=== PATIENT | male | born 1960 | race Caucasian/White ===

== ENCOUNTER 2021-10-16 05:35 | Inpatient (IN) | payer MEDICARE, OTHER, SELFPAY ==
[2021-10-16] VITALS (10 sets, daily range): BP systolic 119–173; BP diastolic 57–81; PULSE 63–92; RESP 16–25; TEMP 36.6–37.8; O2SAT 94–100; BMI 16.1
--- NOTE | ~2021-10-16 | XR_ITS ---
EXAMINATION: XR CHEST CLINICAL INFORMATION: Acute onset hypoxia. COMPARISON: Chest x-ray 10/19/2021 TECHNIQUE: Frontal portable view of the chest was obtained. 12:24 AM FINDINGS: Tubes and lines: Right IJ catheter tip at caval atrial junction superior vena cava unchanged position since prior study. Previously seen gastric tube and endotracheal tube have been removed. Patchy retrocardiac airspace opacity is persistent. The right lung now appears normally aerated. No pleural effusion. No pneumothorax. XR/XR chest 1V IMPRESSION: Persistent patchy left basilar airspace opacity. Right lung now normally aerated.
--- NOTE | ~2021-10-16 | CT_ITS ---
EXAMINATION: CT HEAD WITHOUT CONTRAST CLINICAL INFORMATION: Fall. Pain. COMPARISON: None TECHNIQUE: Contiguous axial imaging was performed from the skull base to vertex without intravenous administration of contrast. Examination was repeated due to patient motion. This CT examination was performed using dose optimization techniques as appropriate, variously including the following: *Automated exposure control *Adjustment of mA and/or kV according to patient size (this includes techniques or standardized protocols for targeted exams where dose is matched to indication/reason for exam; i.e. extremities or head) *Use of iterative reconstruction technique DLP: 1526 mGy-cm FINDINGS: There is no evidence of acute intracranial hemorrhage or territorial infarction. No abnormal mass effect or midline shift is seen. Coleman to white matter differentiation is well preserved. No extra-axial fluid collections are identified. The ventricles are normal in size. Scattered periventricular white matter changes are seen of uncertain chronicity. The osseous structures and soft tissues are normal. The mastoid air cells are well aerated. There is complete opacification of the left maxillary sinus just an underlying mucocele. Scattered opacification of the left ethmoid air cells. CT/CT head/brain wo con IMPRESSION: Chronic appearing and age-related changes. I do not appreciate any acute intracranial hemorrhage. No acute bony abnormality.
--- NOTE | ~2021-10-16 | XR_ITS ---
EXAMINATION: XR CHEST CLINICAL INFORMATION: Hypoxia COMPARISON: 10/16/2021 TECHNIQUE: Frontal view of the chest was obtained. XR/XR chest 1V FINDINGS/IMPRESSION: Endotracheal tube terminates 5.4 cm above the aquiles. Enteric tube courses through the stomach. Left basilar subsegmental atelectasis. No focal consolidation. Normal heart size and pulmonary vascularity. Aorta is atherosclerotic.
--- NOTE | ~2021-10-16 | XR_ITS ---
EXAMINATION: XR CHEST CLINICAL INFORMATION: Oral gastric tube placement COMPARISON: Chest x-ray 10/20/2021 TECHNIQUE: Frontal portable view of the chest was obtained. 6:10 PM FINDINGS: Tubes and lines: 1. Endotracheal tube catheter is 5 cm above the aquiles. 2. Right IJ catheter tip at the caval atrial junction in superior vena cava. No pneumothorax. 3. Oral gastric tube catheter passes down into the stomach. Tip below lower margin of film. Heart size is normal. Cardiac mediastinal contours are normal. Mild central pulmonary vascular prominence increased since prior study 10/20/2021. Hazy airspace opacities in perihilar mid lower lung could be related to the increased pulmonary vascularity, early pulmonary edema. No dense consolidation. No large pleural effusion. XR/XR chest 1V IMPRESSION: 1. Endotracheal tube catheter is 5 cm above the aquiles. 2. Right IJ catheter tip at the caval atrial junction in superior vena cava. No pneumothorax. 3. Oral gastric tube catheter passes down into the stomach. Tip below lower margin of film. 4. Increased central pulmonary vascular prominence with developing hazy airspace opacities in perihilar mid and lower lung, possible early pulmonary edema.
--- NOTE | ~2021-10-16 | CT_ITS ---
EXAMINATION: CT CERVICAL SPINE WITHOUT CONTRAST CLINICAL INFORMATION: Fall. COMPARISON: None TECHNIQUE: Axial 3 mm thin and reformatted 2 mm thin sagittal and coronal images of cervical spine were obtained without contrast This CT examination was performed using dose optimization techniques as appropriate, variously including the following: *Automated exposure control *Adjustment of mA and/or kV according to patient size (this includes techniques or standardized protocols for targeted exams where dose is matched to indication/reason for exam; i.e. extremities or head) *Use of iterative reconstruction technique DLP: 1800 mGy-cm FINDINGS: There is normal cervical lordosis. The vertebral heights, alignment and disc heights are normal. The craniovertebral junction and the C1-C2 alignment is normal. There is no visible acute fracture, dislocation or subluxation. There is no evidence of disc bulge, herniation or spinal canal stenosis. The neural foramina are patent bilaterally. The prevertebral and paravertebral soft tissues are normal. The lung apices are clear CT/CT cervical spine wo con IMPRESSION: No visible acute fracture, dislocation or subluxation seen. Fleischner guidelines were followed.
--- NOTE | ~2021-10-16 | XR_ITS ---
EXAMINATION: XR CHEST CLINICAL INFORMATION: Central line placement COMPARISON: 10/17/2021 TECHNIQUE: Frontal view of the chest was obtained. FINDINGS: Endotracheal tube is 2.7 cm above the aquiles. The right IJ central venous catheter tip is at the cavoatrial junction. NG tube is below the diaphragm. The cardiomediastinal silhouette is stable. The lungs are well expanded. No pneumothorax. Mild left basilar atelectasis and trace effusion. XR/XR chest 1V IMPRESSION: ET tube 2.7 cm above the aquiles. Right IJ central venous catheter tip at the cavoatrial junction. No pneumothorax. Mild left basilar atelectasis and trace effusion.
--- NOTE | ~2021-10-16 | XR_ITS ---
EXAMINATION: XR CHEST CLINICAL INFORMATION: Follow up Covid COMPARISON: Chest x-rays of 10/17/2021 and multiple previous chest x-rays dated back to 07/31/2018, chest CT of 08/02/2018 TECHNIQUE: Frontal view of the chest was obtained. FINDINGS: An endotracheal tube terminates 4.1 cm above the aquiles. Right internal jugular approach catheter tip projects over the lower SVC. An enteric tube courses below the diaphragm, the tip is external to the [id number]. The cardiomediastinal silhouette is stable and normal. The lungs are normally and symmetrically expanded. Bilateral hazy patchy airspace opacities noted on the x-rays of 10/17/2021 demonstrate interval improvement with mild persistent changes. No evidence of pleural effusions, pulmonary edema or pneumothorax. Regional skeleton is intact. XR/XR chest 1V IMPRESSION: Improving bilateral hazy patchy airspace opacities. No definite new airspace opacities. Endotracheal tube terminates 4.1 cm above the aquiles. No pneumothorax.
--- NOTE | ~2021-10-16 | XR_ITS ---
EXAMINATION: XR CHEST CLINICAL INFORMATION: Covid positive COMPARISON: None TECHNIQUE: Frontal view of the chest was obtained. FINDINGS: Expanded lungs without acute process. Heart size and pulmonary vascularity is normal. No gross bony abnormality seen. XR/XR chest 1V IMPRESSION: Unremarkable chest exam.
--- NOTE | 2021-10-16 05:53 | ECG_ITS ---
Test Reason : WEAKNESS Blood Pressure : / mmHG Vent. Rate : 071 BPM Atrial Rate : 071 BPM P-R Int : 200 ms QRS Dur : 084 ms QT Int : 396 ms P-R-T Axes : 028 030 087 degrees QTc Int : 430 ms Artifact in tracing Normal sinus rhythm Normal ECG When compared with ECG of 02-AUG-2018 23:00, slower rate Referred By: Albertina Ramos Electronically Signed By:AWA DYKES
[2021-10-16 06:32] LABS: MANUAL DIFF FLAG NO
[2021-10-16 06:44] LABS: Venous Blood Gas Refer to POC result
[2021-10-16 06:45] LABS: COVID-19 Test Positive (Negative)
[2021-10-16 06:46] LABS: VBG HCO3 25 mmol/L (22-26); VBG pCO2 45 mmHg; VBG pH 7.34 (7.32-7.43); VBG pO2 51 mmHg
[2021-10-16 06:46] LABS: INTERNATIONAL NORM RATIO 1.1 (0.9-1.1); Prothrombin Time 12.2 SEC (9.9-13.0)
[2021-10-16 06:48] LABS: Hematocrit 52.5 % (42.0-52.0); Hemoglobin 16.9 g/dl (14.0-18.0); Imm Gran Abs Auto 0.02 X10*3/uL (0.00-0.03); Imm Gran Pct Auto 0.3 % (0.0-0.4); Lymphocytes Absolute Auto 0.2 X10*3/uL (1.2-4.9); Mean Corpuscular HGB Conc 32.2 g/dl (31.0-36.0); Mean Corpuscular Hemoglobin 29.9 pg (27.0-33.0); Mean Corpuscular Volume 92.9 fL (80.0-98.0); Mean Platelet Volume 9.8 fL (9.4-12.4); Monocytes Absolute Auto 0.5 X10*3/uL (0.1-1.2); Monocytes Percent Auto 8.1 % (2-11); Neutrophils Absolute Auto 5.1 x10*3/uL (2.0-8.3); Neutrophils Percent Auto 87.6 % (45-73); Platelet Count 106 X10*3/uL (160-400); Red Blood Count 5.65 X10*6/uL (4.60-5.80); Red Cell Distribution Width 14.2 % (11.0-16.0); White Blood Count 5.8 X10*3/uL (4.8-10.8)
[2021-10-16 07:21] LABS: Ethanol < 10 mg/dL
[2021-10-16] MEDS: 0.9 % Sodium Chloride 2,000 ML 999 ML IV (07:32)
[2021-10-16 07:49] LABS: Alanine Aminotransferase 78 U/L (0-40); Albumin Level 3.9 g/dL (3.5-5.0); Alkaline Phosphatase 109 U/L (39-117); Anion Gap 15 (12-20); Bilirubin Total 0.7 mg/dL (0.0-1.0); Blood Urea Nitrogen 15 mg/dL (9-16); Calcium 9.7 mg/dL (8.4-10.2); Carbon Dioxide 22 mmol/L (22-29); Chloride 108 mmol/L (96-108); Creatinine Clr Calc Pharmacy 70.9; Estimated Glomerular Filt Rate > 60; Glucose Random 94 mg/dL (60-115); Potassium 4.1 mmol/L (3.3-5.1); Sodium 141 mmol/L (135-145); Total Protein 6.9 g/dL (6.5-8.0)
[2021-10-16 08:02] LABS: Aspartate Amino Transferase 470 U/L (5-37)
[2021-10-16 08:10] LABS: Appearance Urine HAZY; Color Urine YELLOW; Glucose Urine UA NEG (NEG); Leukocyte Esterase Urine NEG (NEG); Nitrite Urine NEG (NEG); PH 5.5 (5.0-8.0); Specific Gravity - Urine >= 1.030 (1.005-1.025); UACC Culture Trigger NO; Urine Blood 3+ (NEG); Urine Ketones NEG (NEG); Urine Protein 2+ MG/DL (NEG-TRACE)
[2021-10-16 08:23] LABS: Amorphous Sediment Urine 3+ /LPF
--- NOTE | 2021-10-16 08:23 | ED.FALL ---
HPI - Fall General Chief Complaint: Fall Stated Complaint: MULTIPLE FALLS Time Seen by Provider: 10/16/21 05:53 Source: patient and EMS Mode of arrival: EMS Limitations: no limitations History of Present Illness HPI Narrative: 61 years old male came in from home by EMS for evaluation of multiple falls at home. Patient admitted that he fell today, patient normally ambulate with cane at home, patient stated that he lost balance and fell remained on the floor coding get himself up, patient found by EMS soaked in feces and urine. Patient stated that he has no family or friends around, has a [employer] which is apparently in adequate care for the patient. Related Data Home Medications Medication Instructions Recorded Confirmed No Known Home Meds 10/16/21 10/16/21 Allergies Allergy/AdvReac Type Severity Reaction Status Date / Time ceftriaxone [From ROCEPHIN] Allergy Intermediate FACIAL Unverified 06/21/20 14:43 HIVES Review of Systems Review of Systems: All other systems are reviewed and are negative Constitutional: Reports as per HPI and Reports no additional constitutional complaints Eyes: Reports as per HPI and Reports no additional eye complaints Reports system reviewed and no additional complaints, except as documented Cardiovascular: Reports as per HPI and Reports no additional cardiovascular complaints Respiratory: Reports as per HPI and Reports no additional respiratory complaints Gastrointestinal: Reports as per HPI and Reports no additional gastrointestinal complaints Genitourinary: Reports no additional female genitourinary complaints Musculoskeletal: Reports no additional musculoskeletal complaints Skin/Breast: Reports system reviewed and no additional complaints, except as docu Psychiatric: Reports no additional psychiatric complaints Endocrine: Reports no additional endocrine complaints Hematologic/Lymphatic: Reports no additional hematologic/lymphatic complaints Allergic/Immunologic: Reports no additional allergic/immunologic complaints Reports system reviewed and no additional complaints, except as documented and Reports Abnormal speech present [facility] Past Medical History Medical History (Updated 10/16/21 @ 11:18 by Anuradha Latif MD) Hypertension Myotonic muscular dystrophy Tobacco abuse Social History Social History Advance Directives: No Physical Exam Vital Signs: Vital Signs: Last Vital Signs Temp 98.3 F 10/16/21 10:08 Pulse 90 10/16/21 10:08 Resp 20 10/16/21 10:08 BP 150/71 H 10/16/21 10:08 Pulse Ox 95 10/16/21 10:08 BMI result Body Mass Index 16.1 Vital signs have been reviewed as appeared to be correct. Blood pressure normal. Heart rate normal. Respiration rate normal. Temperature normal. Oxygen saturation normal. Appearance: Alert. Oriented X3. No acute distress. Head: Normal external exam. Normocephalic. Atraumatic. No Huynh signs noted. No raccoon eyes noted Eyes: PERRLA. EOMI. Conjunctiva and sclera normal. Eyelids normal. ENT: TM's Normal. Pharynx normal. Uvula midline. Moist mucous membranes. No trismus noted. No drooling noted. No muffled voice noted. Neck: Normal inspection. Neck supple. FROM. No adenopathy. Thyroid Normal. No meningeal signs. No neck mass noted. CVS: Normal heart rate and rhythm. Heart sound normal. No murmurs noted. Pulses normal throughout. Respiratory: No respiratory distress. Painless inspiration. Breath sounds normal. No wheezes/rales/rhonchi noted. Chest nontender. No accessory muscle usage noted or decreased air movement noted. Abdomen: Soft and nontender. Bowel sounds normal in all 4 quadrants. No distention noted. No organomegaly noted. No visible injury noted. Back: No CVA tenderness. Full range of motion noted. Skin: Skin warm and dry. Normal skin color. Normal skin turgor. No rashes/lesions/lacerations noted. Extremities: No lower extremity edema. Extremities exhibit normal range of motion. Extremities nontender. Neuro: Oriented X 3. Cranial nerve exam: II-XII are grossly intact No motor deficit. No sensory deficit. Reflexes normal. Course Course Course Narrative: Assessment and plan. 61-year-old male found on the ground soaked with feces and urine for unknown time after what he described a mechanical fall. Patient normally ambulate at home with a cane. 1. Rhabdomyolysis with no acute renal failure, hydration with normal saline. 2. COVID positive with no symptoms and stable O2 sat. 3. Elevated troponin, patient declined chest pain, nonischemic EKG, case discussed with Dr. yMers Cardiology will trend troponin in 3 hours. Reevaluation(s) Reevaluation #1: Repeat troponin is 436 inpatient Cardiology consultation, no delta change. Likely troponin elevation secondary to rhabdomyolysis. Time: 11:44 MDM - Fall Lab Data Attestation: I reviewed the patient's lab results. Result diagrams: 10/16/21 06:21 10/16/21 07:23 Labs: Lab Results 10/16/21 10/16/21 10/16/21 Range/Units 06:20 06:21 06:21 WBC 5.8 (4.8-10.8) X10*3/uL RBC 5.65 (4.60-5.80) X10*6/uL Hgb 16.9 (14.0-18.0) g/dl Hct 52.5 H (42.0-52.0) % MCV 92.9 (80.0-98.0) fL MCH 29.9 (27.0-33.0) pg MCHC 32.2 (31.0-36.0) g/dl RDW 14.2 (11.0-16.0) % Plt Count 106 L (160-400) X10*3/uL MPV 9.8 (9.4-12.4) fL Immature Gran % (Auto) 0.3 (0.0-0.4) % Neut % (Auto) 87.6 H (45-73) % Lymph % (Auto) 4.0 L (20-40) % [place] % (Auto) 8.1 (2-11) % Eos % (Auto) 0.0 (0-4) % Baso % (Auto) 0.0 (0-2) % Lymph # (Auto) 0.2 L (1.2-4.9) X10*3/uL [place] # (Auto) 0.5 (0.1-1.2) X10*3/uL Eos # (Auto) 0.0 (0.0-0.4) X10*3/uL Baso # (Auto) 0.0 (0.0-0.2) X10*3/uL Abs Immat Gran (auto) 0.02 (0.00-0.03) X10*3/uL Absolute Neuts (auto) 5.1 (2.0-8.3) x10*3/uL Absolute Nucleated RBC 0.000 (0.0-0.012) X10*3/uL Nucleated RBC % (auto) 0.0 (0.0-0.2) /100WBC PT 12.2 (9.9-13.0) SEC INR 1.1 (0.9-1.1) D-Dimer High Sensitivty 2270 NG/ML VBG pH (7.32-7.43) VBG pCO2 mmHg VBG pO2 mmHg VBG HCO3 (22-26) mmol/L VBG O2 Saturation % VBG Base Excess mmol/L Sodium (135-145) mmol/L Potassium (3.3-5.1) mmol/L Chloride (96-108) mmol/L Carbon Dioxide (22-29) mmol/L Anion Gap (12-20) BUN (9-16) mg/dL Creatinine (0.5-1.4) mg/dL Estim Creat Clear Calc Estimated GFR Random Glucose (60-115) mg/dL Calcium (8.4-10.2) mg/dL Ferritin (20-250) ng/mL Total Bilirubin (0.0-1.0) mg/dL AST (5-37) U/L ALT (0-40) U/L Alkaline Phosphatase (39-117) U/L Lactate Dehydrogenase (118-273) U/L Total Creatine Kinase (38-174) U/L Troponin I High Sens (<3.5-35.0) ng/L C-Reactive Protein (< or = 0.50) mg/dL Total Protein (6.5-8.0) g/dL Albumin (3.5-5.0) g/dL Urine Color Urine Appearance Urine pH (5.0-8.0) Ur Specific [place] (1.005-1.025) Urine Protein (NEG-TRACE) MG/DL Urine Glucose (UA) (NEG) MG/DL Urine Ketones (NEG) MG/DL Urine Blood (NEG) Urine Nitrite (NEG) Ur Leukocyte Esterase (NEG) Urine RBC (0) /HPF Urine WBC (0-4) /HPF Ur Squamous Epith Cells /LPF Amorphous Sediment /LPF Urine Bacteria /LPF Granular Casts /LPF Urine Opiates Screen (Not Detect) Urine Fentanyl Screen (Not Detect) Ur Barbiturates Screen (Not Detect) Ur Phencyclidine Scrn (Not Detect) Ur Amphetamines Screen (Not Detect) U Benzodiazepines Scrn (Not Detect) Urine Cocaine Screen (Not Detect) U Marijuana (THC) Screen (Not Detect) Ethyl Alcohol < 10 mg/dL COVID-19 ([facility]) (Negative) COVID-19 Clin Com 10/16/21 10/16/21 10/16/21 Range/Units 06:21 06:27 07:23 WBC (4.8-10.8) X10*3/uL RBC (4.60-5.80) X10*6/uL Hgb (14.0-18.0) g/dl Hct (42.0-52.0) % MCV (80.0-98.0) fL MCH (27.0-33.0) pg MCHC (31.0-36.0) g/dl RDW (11.0-16.0) % Plt Count (160-400) X10*3/uL MPV (9.4-12.4) fL Immature Gran % (Auto) (0.0-0.4) % Neut % (Auto) (45-73) % Lymph % (Auto) (20-40) % [place] % (Auto) (2-11) % Eos % (Auto) (0-4) % Baso % (Auto) (0-2) % Lymph # (Auto) (1.2-4.9) X10*3/uL [place] # (Auto) (0.1-1.2) X10*3/uL Eos # (Auto) (0.0-0.4) X10*3/uL Baso # (Auto) (0.0-0.2) X10*3/uL Abs Immat Gran (auto) (0.00-0.03) X10*3/uL Absolute Neuts (auto) (2.0-8.3) x10*3/uL Absolute Nucleated RBC (0.0-0.012) X10*3/uL Nucleated RBC % (auto) (0.0-0.2) /100WBC PT (9.9-13.0) SEC INR (0.9-1.1) D-Dimer High Sensitivty NG/ML VBG pH 7.34 (7.32-7.43) VBG pCO2 45 mmHg VBG pO2 51 mmHg VBG HCO3 25 (22-26) mmol/L VBG O2 Saturation 79.0 % VBG Base Excess -1.0 mmol/L Sodium 141 (135-145) mmol/L Potassium 4.1 (3.3-5.1) mmol/L Chloride 108 (96-108) mmol/L Carbon Dioxide 22 (22-29) mmol/L Anion Gap 15 (12-20) BUN 15 (9-16) mg/dL Creatinine 0.71 (0.5-1.4) mg/dL Estim Creat Clear Calc 70.9 Estimated GFR > 60 Random Glucose 94 (60-115) mg/dL Calcium 9.7 (8.4-10.2) mg/dL Ferritin (20-250) ng/mL Total Bilirubin 0.7 (0.0-1.0) mg/dL AST 470 H (5-37) U/L ALT 78 H (0-40) U/L Alkaline Phosphatase 109 (39-117) U/L Lactate Dehydrogenase 626 H (118-273) U/L Total Creatine Kinase 22535 H (38-174) U/L Troponin I High Sens (<3.5-35.0) ng/L C-Reactive Protein 2.96 H (< or = 0.50) mg/dL Total Protein 6.9 (6.5-8.0) g/dL Albumin 3.9 (3.5-5.0) g/dL Urine Color Urine Appearance Urine pH (5.0-8.0) Ur Specific [place] (1.005-1.025) Urine Protein (NEG-TRACE) MG/DL Urine Glucose (UA) (NEG) MG/DL Urine Ketones (NEG) MG/DL Urine Blood (NEG) Urine Nitrite (NEG) Ur Leukocyte Esterase (NEG) Urine RBC (0) /HPF Urine WBC (0-4) /HPF Ur Squamous Epith Cells /LPF Amorphous Sediment /LPF Urine Bacteria /LPF Granular Casts /LPF Urine Opiates Screen (Not Detect) Urine Fentanyl Screen (Not Detect) Ur Barbiturates Screen (Not Detect) Ur Phencyclidine Scrn (Not Detect) Ur Amphetamines Screen (Not Detect) U Benzodiazepines Scrn (Not Detect) Urine Cocaine Screen (Not Detect) U Marijuana (THC) Screen (Not Detect) Ethyl Alcohol mg/dL COVID-19 ([facility]) Positive A (Negative) COVID-19 Clin Com See Note 10/16/21 10/16/21 10/16/21 Range/Units 07:53 08:01 08:01 WBC (4.8-10.8) X10*3/uL RBC (4.60-5.80) X10*6/uL Hgb (14.0-18.0) g/dl Hct (42.0-52.0) % MCV (80.0-98.0) fL MCH (27.0-33.0) pg MCHC (31.0-36.0) g/dl RDW (11.0-16.0) % Plt Count (160-400) X10*3/uL MPV (9.4-12.4) fL Immature Gran % (Auto) (0.0-0.4) % Neut % (Auto) (45-73) % Lymph % (Auto) (20-40) % [place] % (Auto) (2-11) % Eos % (Auto) (0-4) % Baso % (Auto) (0-2) % Lymph # (Auto) (1.2-4.9) X10*3/uL [place] # (Auto) (0.1-1.2) X10*3/uL Eos # (Auto) (0.0-0.4) X10*3/uL Baso # (Auto) (0.0-0.2) X10*3/uL Abs Immat Gran (auto) (0.00-0.03) X10*3/uL Absolute Neuts (auto) (2.0-8.3) x10*3/uL Absolute Nucleated RBC (0.0-0.012) X10*3/uL Nucleated RBC % (auto) (0.0-0.2) /100WBC PT (9.9-13.0) SEC INR (0.9-1.1) D-Dimer High Sensitivty NG/ML VBG pH (7.32-7.43) VBG pCO2 mmHg VBG pO2 mmHg VBG HCO3 (22-26) mmol/L VBG O2 Saturation % VBG Base Excess mmol/L Sodium (135-145) mmol/L Potassium (3.3-5.1) mmol/L Chloride (96-108) mmol/L Carbon Dioxide (22-29) mmol/L Anion Gap (12-20) BUN (9-16) mg/dL Creatinine (0.5-1.4) mg/dL Estim Creat Clear Calc Estimated GFR Random Glucose (60-115) mg/dL Calcium (8.4-10.2) mg/dL Ferritin (20-250) ng/mL Total Bilirubin (0.0-1.0) mg/dL AST (5-37) U/L ALT (0-40) U/L Alkaline Phosphatase (39-117) U/L Lactate Dehydrogenase (118-273) U/L Total Creatine Kinase (38-174) U/L Troponin I High Sens 365.9 H* (<3.5-35.0) ng/L C-Reactive Protein (< or = 0.50) mg/dL Total Protein (6.5-8.0) g/dL Albumin (3.5-5.0) g/dL Urine Color YELLOW Urine Appearance HAZY Urine pH 5.5 (5.0-8.0) Ur Specific [place] >= 1.030 H (1.005-1.025) Urine Protein 2+ H (NEG-TRACE) MG/DL Urine Glucose (UA) NEG (NEG) MG/DL Urine Ketones NEG (NEG) MG/DL Urine Blood 3+ H (NEG) Urine Nitrite NEG (NEG) Ur Leukocyte Esterase NEG (NEG) Urine RBC 10-14 H (0) /HPF Urine WBC 0-2 (0-4) /HPF Ur Squamous Epith Cells TRACE /LPF Amorphous Sediment 3+ /LPF Urine Bacteria NONE /LPF Granular Casts 1-4 /LPF Urine Opiates Screen Not Detected (Not Detect) Urine Fentanyl Screen Not Detected (Not Detect) Ur Barbiturates Screen Not Detected (Not Detect) Ur Phencyclidine Scrn Not Detected (Not Detect) Ur Amphetamines Screen Not Detected (Not Detect) U Benzodiazepines Scrn Not Detected (Not Detect) Urine Cocaine Screen Not Detected (Not Detect) U Marijuana (THC) Screen Not Detected (Not Detect) Ethyl Alcohol mg/dL COVID-19 ([facility]) (Negative) COVID-19 Clin Com 10/16/21 10/16/21 Range/Units 10:57 10:58 WBC (4.8-10.8) X10*3/uL RBC (4.60-5.80) X10*6/uL Hgb (14.0-18.0) g/dl Hct (42.0-52.0) % MCV (80.0-98.0) fL MCH (27.0-33.0) pg MCHC (31.0-36.0) g/dl RDW (11.0-16.0) % Plt Count (160-400) X10*3/uL MPV (9.4-12.4) fL Immature Gran % (Auto) (0.0-0.4) % Neut % (Auto) (45-73) % Lymph % (Auto) (20-40) % [place] % (Auto) (2-11) % Eos % (Auto) (0-4) % Baso % (Auto) (0-2) % Lymph # (Auto) (1.2-4.9) X10*3/uL [place] # (Auto) (0.1-1.2) X10*3/uL Eos # (Auto) (0.0-0.4) X10*3/uL Baso # (Auto) (0.0-0.2) X10*3/uL Abs Immat Gran (auto) (0.00-0.03) X10*3/uL Absolute Neuts (auto) (2.0-8.3) x10*3/uL Absolute Nucleated RBC (0.0-0.012) X10*3/uL Nucleated RBC % (auto) (0.0-0.2) /100WBC PT (9.9-13.0) SEC INR (0.9-1.1) D-Dimer High Sensitivty NG/ML VBG pH (7.32-7.43) VBG pCO2 mmHg VBG pO2 mmHg VBG HCO3 (22-26) mmol/L VBG O2 Saturation % VBG Base Excess mmol/L Sodium (135-145) mmol/L Potassium (3.3-5.1) mmol/L Chloride (96-108) mmol/L Carbon Dioxide (22-29) mmol/L Anion Gap (12-20) BUN (9-16) mg/dL Creatinine (0.5-1.4) mg/dL Estim Creat Clear Calc Estimated GFR Random Glucose (60-115) mg/dL Calcium (8.4-10.2) mg/dL Ferritin 168 (20-250) ng/mL Total Bilirubin (0.0-1.0) mg/dL AST (5-37) U/L ALT (0-40) U/L Alkaline Phosphatase (39-117) U/L Lactate Dehydrogenase (118-273) U/L Total Creatine Kinase (38-174) U/L Troponin I High Sens 436.0 H* (<3.5-35.0) ng/L C-Reactive Protein (< or = 0.50) mg/dL Total Protein (6.5-8.0) g/dL Albumin (3.5-5.0) g/dL Urine Color Urine Appearance Urine pH (5.0-8.0) Ur Specific [place] (1.005-1.025) Urine Protein (NEG-TRACE) MG/DL Urine Glucose (UA) (NEG) MG/DL Urine Ketones (NEG) MG/DL Urine Blood (NEG) Urine Nitrite (NEG) Ur Leukocyte Esterase (NEG) Urine RBC (0) /HPF Urine WBC (0-4) /HPF Ur Squamous Epith Cells /LPF Amorphous Sediment /LPF Urine Bacteria /LPF Granular Casts /LPF Urine Opiates Screen (Not Detect) Urine Fentanyl Screen (Not Detect) Ur Barbiturates Screen (Not Detect) Ur Phencyclidine Scrn (Not Detect) Ur Amphetamines Screen (Not Detect) U Benzodiazepines Scrn (Not Detect) Urine Cocaine Screen (Not Detect) U Marijuana (THC) Screen (Not Detect) Ethyl Alcohol mg/dL COVID-19 ([facility]) (Negative) COVID-19 Clin Com Imaging Data CT scan - head: Attestation: I personally reviewed and interpreted this imaging study as follows: Radiologist's impression: Chronic appearing and age-related changes. I do not appreciate any acute intracranial hemorrhage. No acute bony abnormality. Cervical spine CT: Attestation: I personally reviewed and interpreted this imaging study as follows: Radiologist's impression: No visible acute fracture, dislocation or subluxation seen. ECG Data Attestation: I personally reviewed and interpreted this ECG as follows: Interpretation: Normal sinus rhythm at 71 beats per minute, normal intervals, no ST-T ischemic changes. Discharge Plan Discharge Clinical Impression: Rhabdomyolysis, Elevated troponin Patient Disposition: Admitted As Inpatient
[2021-10-16 08:24] LABS: WBC Urine 0-2 /HPF (0-4)
[2021-10-16 08:29] LABS: Amphetamine Screen Urine Not Detected (Not Detect); Barbiturates, Urine Not Detected (Not Detect); Benzodiazepines Screen Urine Not Detected (Not Detect); Cannabinoid Screen Urine Not Detected (Not Detect); Cocaine Screen Urine Not Detected (Not Detect); Fentanyl, urine Not Detected (Not Detect); Opiate Screen Urine Not Detected (Not Detect); Phencyclidine Screen Urine Not Detected (Not Detect)
[2021-10-16 08:30] LABS: Squamous Epithelial Cell Urine TRACE /LPF
[2021-10-16 08:38] LABS: Troponin-I High Sensitivity 365.9 ng/L (<3.5-35.0)
--- NOTE | 2021-10-16 09:08 | PHA.MEDREC ---
Pharmacy Consult ? Medication Reconciliation Pharmacy has completed the medication reconciliation. Patient reports no medications. Patient has no claim history or mo records on PDMP. Maryan Guallpa, PharmD
[2021-10-16 09:15] LABS: D Dimer High Sensitivity 2270 NG/ML
[2021-10-16 09:26] LABS: C Reactive Protein 2.96 mg/dL (< or = 0.50); Lactate Dehydrogenase 626 U/L (118-273)
[2021-10-16] MEDS: 0.9 % Sodium Chloride 1,000 ML 999 ML IV (09:36)
--- NOTE | 2021-10-16 09:39 | PC.NURSE ---
C COLLAR CLEARED 2ND IV ACCESS GAINED. REQUIRES SUCTION TO ASSIST WITH CLEARING AIRWAY/THROAT OF THICK MUCUS
--- NOTE | 2021-10-16 11:07 | PM.IMHP ---
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 He estimates that he was on the ground for 2 hours. He was found by EMS soaked in urine and feces. He denies LOC or seizures. [place] was [place] [address]; AST 470; ALT 78; LDH 626; hs-Tn-I 366. He denies chest pain and EKG shows no ischemic changes. Serum creatinine normal at 0.71. He tested positive for Covid-19 by [facility] on routine admission screening but denies fever, cough, dyspnea, or sick contacts. He is not hypoxic. CXR is negative for infiltrate. He has not been vaccinated against SARS-CoV2. He has had worsening thick cream-colored oral secretions in his throat for the past week, though. He smokes a pack a day. Review of Systems Review of Systems: Yes all other systems are reviewed and are negative [facility] Medical History (Updated 10/16/21 @ 11:18 by Anuradha Latif MD) Hypertension Myotonic muscular dystrophy Tobacco abuse Pertinent family history: sister has myotonic muscular dystrophy Social History Advance Directives: No Narrative: Social Hx: lives with autistic nephew, who has a RELAY TESTER. smokes 1 ppd. no EtOH. Meds Allergies Allergy/AdvReac Type Severity Reaction Status Date / Time ceftriaxone [From ROCEPHIN] Allergy Intermediate FACIAL Unverified 06/21/20 14:43 HIVES Active Medications: Current Medications Acetaminophen (Acetaminophen 325 Mg Tablet) 650 mg PO Q6H PRN PRN Reason: Pain, Mild (Pain Scale 1-3) Enoxaparin Sodium (Enoxaparin Sodium 40 Mg/0.4 Ml Syringe) 40 mg SUBCUT Q24H MYLENE Sodium Chloride (Ns) 1,000 mls @ 100 mls/hr IVCONT .Q10H MYLENE Ondansetron HCl (Ondansetron Hcl 4 Mg/2 Ml Vial) 4 mg IVPUSH Q8H PRN PRN Reason: Nausea and Vomiting Pharmacy Consult (Consult Rx Perform Med Rec) 1 each MISCELLANE ONCE PRN PRN Reason: Consult order Sodium Chloride (0.9 % Sodium Chloride Flush 3 Ml Syringe) 3 ml IVFLUSH QSHIFT [facility] Home Medications Medication Instructions Recorded Confirmed Last Taken Type No Known Home Meds 10/16/21 10/16/21 Unknown History Physical Exam Vital Signs and Narrative: Vital Signs: Last Vital Signs Temp 98.3 F 10/16/21 10:08 Pulse 90 10/16/21 10:08 Resp 20 10/16/21 10:08 BP 150/71 H 10/16/21 10:08 Pulse Ox 95 10/16/21 10:08 BMI result Body Mass Index 16.1 Gen: in no acute distress, extensive muscle wasting HEENT: sclera anicteric, moist mucus membranes Neck: supple Lungs: clear to auscultation bilaterally Heart: regular rate and rhythm, no murmurs Abd: soft, non-tender, non-distended Ext: no edema Skin: warm/well-perfused Neuro: alert and oriented x3, no focal findings Psych: appropriate affect Results Labs CBC and Chem 7: 10/16/21 06:21 10/16/21 07:23 Labs: Laboratory Results - last 24 hr 10/16/21 10/16/21 10/16/21 06:20 06:21 06:21 MCV 92.9 MCH 29.9 MCHC 32.2 RDW 14.2 Plt Count 106 L MPV 9.8 Immature Gran % (Auto) 0.3 Neut % (Auto) 87.6 H Lymph % (Auto) 4.0 L [place] % (Auto) 8.1 Eos % (Auto) 0.0 Baso % (Auto) 0.0 Lymph # (Auto) 0.2 L [place] # (Auto) 0.5 Eos # (Auto) 0.0 Baso # (Auto) 0.0 Abs Immat Gran (auto) 0.02 Absolute Neuts (auto) 5.1 Absolute Nucleated RBC 0.000 Nucleated RBC % (auto) 0.0 PT 12.2 INR 1.1 D-Dimer High Sensitivty 2270 VBG pH VBG pCO2 VBG pO2 VBG HCO3 VBG O2 Saturation VBG Base Excess Anion Gap Estim Creat Clear Calc Estimated GFR Random Glucose Calcium Total Bilirubin AST ALT Alkaline Phosphatase Lactate Dehydrogenase Total Creatine Kinase Troponin I High Sens C-Reactive Protein Total Protein Albumin Urine Color Urine Appearance Urine pH Ur Specific [place] Urine Protein Urine Glucose (UA) Urine Ketones Urine Blood Urine Nitrite Ur Leukocyte Esterase Urine RBC Urine WBC Ur Squamous Epith Cells Amorphous Sediment Urine Bacteria Granular Casts Urine Opiates Screen Urine Fentanyl Screen Ur Barbiturates Screen Ur Phencyclidine Scrn Ur Amphetamines Screen U Benzodiazepines Scrn Urine Cocaine Screen U Marijuana (THC) Screen Ethyl Alcohol < 10 COVID-19 ([facility]) COVID-19 Clin Com 10/16/21 10/16/21 10/16/21 06:21 06:27 07:23 MCV MCH MCHC RDW Plt Count MPV Immature Gran % (Auto) Neut % (Auto) Lymph % (Auto) [place] % (Auto) Eos % (Auto) Baso % (Auto) Lymph # (Auto) [place] # (Auto) Eos # (Auto) Baso # (Auto) Abs Immat Gran (auto) Absolute Neuts (auto) Absolute Nucleated RBC Nucleated RBC % (auto) PT INR D-Dimer High Sensitivty VBG pH 7.34 VBG pCO2 45 VBG pO2 51 VBG HCO3 25 VBG O2 Saturation 79.0 VBG Base Excess -1.0 Anion Gap 15 Estim Creat Clear Calc 70.9 Estimated GFR > 60 Random Glucose 94 Calcium 9.7 Total Bilirubin 0.7 AST 470 H ALT 78 H Alkaline Phosphatase 109 Lactate Dehydrogenase 626 H Total Creatine Kinase 35557 H Troponin I High Sens C-Reactive Protein 2.96 H Total Protein 6.9 Albumin 3.9 Urine Color Urine Appearance Urine pH Ur Specific [place] Urine Protein Urine Glucose (UA) Urine Ketones Urine Blood Urine Nitrite Ur Leukocyte Esterase Urine RBC Urine WBC Ur Squamous Epith Cells Amorphous Sediment Urine Bacteria Granular Casts Urine Opiates Screen Urine Fentanyl Screen Ur Barbiturates Screen Ur Phencyclidine Scrn Ur Amphetamines Screen U Benzodiazepines Scrn Urine Cocaine Screen U Marijuana (THC) Screen Ethyl Alcohol COVID-19 ([facility]) Positive A COVID-19 Clin Com See Note 10/16/21 10/16/21 10/16/21 07:53 08:01 08:01 MCV MCH MCHC RDW Plt Count MPV Immature Gran % (Auto) Neut % (Auto) Lymph % (Auto) [place] % (Auto) Eos % (Auto) Baso % (Auto) Lymph # (Auto) [place] # (Auto) Eos # (Auto) Baso # (Auto) Abs Immat Gran (auto) Absolute Neuts (auto) Absolute Nucleated RBC Nucleated RBC % (auto) PT INR D-Dimer High Sensitivty VBG pH VBG pCO2 VBG pO2 VBG HCO3 VBG O2 Saturation VBG Base Excess Anion Gap Estim Creat Clear Calc Estimated GFR Random Glucose Calcium Total Bilirubin AST ALT Alkaline Phosphatase Lactate Dehydrogenase Total Creatine Kinase Troponin I High Sens 365.9 H* C-Reactive Protein Total Protein Albumin Urine Color YELLOW Urine Appearance HAZY Urine pH 5.5 Ur Specific [place] >= 1.030 H Urine Protein 2+ H Urine Glucose (UA) NEG Urine Ketones NEG Urine Blood 3+ H Urine Nitrite NEG Ur Leukocyte Esterase NEG Urine RBC 10-14 H Urine WBC 0-2 Ur Squamous Epith Cells TRACE Amorphous Sediment 3+ Urine Bacteria NONE Granular Casts 1-4 Urine Opiates Screen Not Detected Urine Fentanyl Screen Not Detected Ur Barbiturates Screen Not Detected Ur Phencyclidine Scrn Not Detected Ur Amphetamines Screen Not Detected U Benzodiazepines Scrn Not Detected Urine Cocaine Screen Not Detected U Marijuana (THC) Screen Not Detected Ethyl Alcohol COVID-19 ([facility]) COVID-19 Clin Com Impressions Cervical Spine CT 10/16/21 07:10 IMPRESSION: No visible acute fracture, dislocation or subluxation seen. Fleischner guidelines were followed. Head CT 10/16/21 07:10 IMPRESSION: Chronic appearing and age-related changes. I do not appreciate any acute intracranial hemorrhage. No acute bony abnormality. Chest X-Ray 10/16/21 09:53 IMPRESSION: Unremarkable chest exam. Imaging Radiologist's Impressions: Impressions Cervical Spine CT 10/16/21 07:10 IMPRESSION: No visible acute fracture, dislocation or subluxation seen. Fleischner guidelines were followed. Head CT 10/16/21 07:10 IMPRESSION: Chronic appearing and age-related changes. I do not appreciate any acute intracranial hemorrhage. No acute bony abnormality. Chest X-Ray 10/16/21 09:53 IMPRESSION: Unremarkable chest exam. Assessment and Plan (1) Rhabdomyolysis: Status: Acute (2) COVID-19: Status: Acute 61yo M with myotonic muscular dystrophy presenting after a mechanical fall and found to have rhabdomyolysis and incidental Covid-19 infection. # rhabdomyolysis - admit to [facility], saline diuresis with NS, trend CPK # Covid-19 infection - not hypoxic. trend inflammatory markers. at high risk for severe disease, but remdesivir contraindicated by elevated LFTs and we do not have sotrovimab or oral antivirals. isolation precautions # troponin elevation - likely due to cross-reactivity with skeletal muscle but recheck at 3hr emelia; no EKG changes and no angina # transaminasemia - also likely due to rhabdomyolysis but recheck LFTs + screen for HBV/HCV # fall - PT consult # myotonic MD - [employer] consult # tobacco abuse - NRT # VTE ppx - LMWH Quality Stroke Does the patient have a stroke diagnosis?: No VTE Prior VTE?: No VTE Risk Level:: Medical - moderate - high VTE Device Contraindication: N/A - Device Ordered VTE Drug Contraindication: N/A - Med Ordered
[2021-10-16] MEDS: 0.9 % Sodium Chloride 1,000 ML 100 ML IVCONT ×2 (11:08→20:26)
[2021-10-16 11:40] LABS: Ferritin 168 ng/mL (20-250)
[2021-10-16 11:56] LABS: Procalcitonin 0.33 ng/mL
[2021-10-16 13:06] LABS: OBS Int Ctl Valid YES; OBS1 POSITIVE (NEGATIVE)
--- NOTE | 2021-10-16 13:28 | PC.NURSE ---
@1245 pt having frequent loose bloody brown stool. guiac + held lovenox admitting physician was made aware. remains pale dry iv fluids infusing
[2021-10-16 13:39] LABS: Hematocrit 45.8 % (42.0-52.0); Hemoglobin 14.5 g/dl (14.0-18.0)
--- NOTE | 2021-10-16 16:28 | PM.GICN ---
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 Limited history from patient, mostly hx from notes, he appears agitated and confused and denies rectal bleeding. Apparently he was found down at home, covered in stool and urine. Labs were consistent with rhabdo and he also had cough with sputum so covid checked and was positive. CXR was negative for infiltrates. Apparently rectal bleeding noted in ED. Not known if he has had a colonoscopy before. Review of Systems Review of Systems: Yes Unobtainable due to mental condition and Unobtainable due to mental status PMFSH Past Medical History Medical History (Updated 10/16/21 @ 16:43 by Dona Lopez MD) Hypertension Myotonic muscular dystrophy Tobacco abuse Social History Social History Advance Directives: No Meds Allergies Allergy/AdvReac Type Severity Reaction Status Date / Time ceftriaxone [From ROCEPHIN] Allergy Intermediate FACIAL Unverified 06/21/20 14:43 HIVES Active Medications: Current Medications Acetaminophen (Acetaminophen 325 Mg Tablet) 650 mg PO Q6H PRN PRN Reason: Pain, Mild (Pain Scale 1-3) Sodium Chloride (Ns) 1,000 mls @ 100 mls/hr IVCONT .Q10H [facility] Last Admin: 10/16/21 11:08 Dose: 100 mls/hr Documented by: Nicotine Polacrilex (Nicotine Polacrilex 2 Mg Gum) 2 mg BUCCAL Q2H PRN PRN Reason: nicotine cravings Ondansetron HCl (Ondansetron Hcl 4 Mg/2 Ml Vial) 4 mg IVPUSH Q8H PRN PRN Reason: Nausea and Vomiting Pharmacy Consult (Consult Rx Perform Med Rec) 1 each MISCELLANE ONCE PRN PRN Reason: Consult order Sodium Chloride (0.9 % Sodium Chloride Flush 3 Ml Syringe) 3 ml IVFLUSH QSHIFT [facility] Home Medications Medication Instructions Recorded Confirmed Last Taken Type No Known Home Meds 10/16/21 10/16/21 Unknown History Physical Exam Vital Signs: Vital Signs: Last Vital Signs Temp 98.6 F 10/16/21 13:56 Pulse 63 10/16/21 13:56 Resp 21 H 10/16/21 13:56 BP 119/57 L 10/16/21 13:56 Pulse Ox 95 10/16/21 13:56 BMI result Body Mass Index 16.1 EXAM: GENERAL: The patient is thin and dishevelled, appears confused pulling at cords and wires around the bed. Gaunt. patient coughing. VITAL SIGNS:see workflow HEENT: Nonicteric sclerae, PERRLA, EOMI. Oropharynx clear. Moist mucous membranes. Conjunctivae appear well perfused. No thyroid mass. CHEST: Chest wall is nontender. HEART: Regular rate and rhythm without murmurs. LUNGS: Clear to auscultation bilaterally. ABDOMEN: Soft, positive bowel sounds, nontender, no organomegaly.no flank tenderness RECTAL: inspection with pinkish stain on bed sheet, there appears to be the edge of an external hemorrhoid SKIN: No rash, no excessive bruising, petechiae, or purpura. NEUROLOGIC: Cranial nerves II-XII intact without motor/sensory deficit. Psych: Appearance: disheveled Insight: Poor insight present (Psych) Results Labs CBC & Chem 7: 10/16/21 13:30 10/16/21 07:23 Labs: Short CBC 10/16/21 10/16/21 Range/Units 06:21 13:30 WBC 5.8 (4.8-10.8) X10*3/uL Hgb 16.9 14.5 (14.0-18.0) g/dl Hct 52.5 H 45.8 (42.0-52.0) % Plt Count 106 L (160-400) X10*3/uL BMP 10/16/21 07:23 Sodium 141 Potassium 4.1 Chloride 108 Carbon Dioxide 22 BUN 15 Creatinine 0.71 Calcium 9.7 Cardiac Enzymes 10/16/21 Range/Units 07:23 Total Creatine Kinase 23134 H (38-174) U/L Liver Function 10/16/21 Range/Units 07:23 Total Bilirubin 0.7 (0.0-1.0) mg/dL AST 470 H (5-37) U/L ALT 78 H (0-40) U/L Alkaline Phosphatase 109 (39-117) U/L Albumin 3.9 (3.5-5.0) g/dL Urine 10/16/21 Range/Units 08:01 Urine Color YELLOW Urine Appearance HAZY Urine pH 5.5 (5.0-8.0) Ur Specific [place] >= 1.030 H (1.005-1.025) Urine Protein 2+ H (NEG-TRACE) MG/DL Urine Glucose (UA) NEG (NEG) MG/DL Imaging Chest x-ray: Attestation: I personally reviewed and interpreted this imaging study as follows: My impression: normal Assessment and Plan (1) Rectal bleeding: Status: Acute (2) Rhabdomyolysis: Status: Acute (3) COVID-19: Status: Acute / 61 yr old with rhabdo and rectal bleeding, ddx; ischemic colitis, hemorrhoids, IBD, or neoplasia. Current illness complicated by covid infecton and lung symptoms. Less common but covid can also cause colitis and gastroenteritis. PLAN; 1/ Would hold on invasive testing unless there is emergent indication, woudl fluid resuscitate as doing, can use PA anusol BID 2/ If not having diarrhea can give colace and miralax, 3/ If bleeding worsens or acclerates then CT A/P scan with PO contrast 4/ Avoid hypotension, hold BP meds unless significant HTN Procedures Date of Service Date of Service: 10/16/21
[2021-10-16] MEDS: Acetaminophen 325 MG TABLET 650 MG PO (23:26)
[2021-10-17] VITALS (32 sets, daily range): BP systolic 80–155; BP diastolic 40–70; PULSE 63–94; RESP 13–33; TEMP 34.5–37.4; O2SAT 56–100; BMI 16.1
--- NOTE | 2021-10-17 | ECG_ITS ---
Test Reason : ekg changes Blood Pressure : / mmHG Vent. Rate : 058 BPM Atrial Rate : 058 BPM P-R Int : 218 ms QRS Dur : 080 ms QT Int : 470 ms P-R-T Axes : 049 066 091 degrees QTc Int : 461 ms Sinus bradycardia with 1st degree A-V block Nonspecific ST and T wave abnormality Abnormal ECG When compared with ECG of 17-OCT-2021 04:34, MO interval has increased Vent. rate has decreased BY 33 BPM Referred By: Yannick Vazquez Electronically Signed By:AWA DYKES
--- NOTE | 2021-10-17 | ECG_ITS ---
Test Reason : cp Blood Pressure : / mmHG Vent. Rate : 091 BPM Atrial Rate : 091 BPM P-R Int : 184 ms QRS Dur : 082 ms QT Int : 390 ms P-R-T Axes : 000 060 092 degrees QTc Int : 479 ms Normal sinus rhythm Nonspecific ST and T wave abnormality When compared with ECG of 16-OCT-2021 06:42, Nonspecific T wave abnormality now evident in Anterolateral leads Referred By: Yannick Vazquez Electronically Signed By:AWA DYKES
[2021-10-17] MEDS: 0.9 % Sodium Chloride Flush 3 ML SYRINGE IVFLUSH ×3 (00:26→23:01)
[2021-10-17 03:26] LABS: Glucose, Whole Blood 118 mg/dL (60-115)
--- NOTE | 2021-10-17 03:31 | P.EN_ITS ---
Event Note Date of Service: 10/17/21 Event Note: at around 3:00 a.m. a rapid response was called for patient's hyp oxia. According to the nurse patient was satting 94% on 2 L around midnight, around 4:00 a.m. patient became unresponsive and desatted to the 40% on 2 L. On my arrival patient was on a non-rebreather as well as a nasal cannula satting 70-80%. After bagging him for a short period patient's oxygen came t low 80s. ICU was called and patient will be taking to ICU for further management of his oxygenation. According to the nurse that was no evidence of aspiration, patient himself is somnolent but arousable and denies any chest pain or chest tightness.
[2021-10-17 03:42] LABS: ABG Base Excess -4.6 mmol/L; ABG HCO3 23 mmol/L (22-26); ABG pCO2 56 mmHg (32-45); ABG pH 7.22 (7.35-7.45); ABG pO2 70 mmHg (83-108)
--- NOTE | 2021-10-17 04:00 | W.PM.CCCN ---
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 Patient had initially been admitted to the hospital on 10/16/2021 as he was found by EMS after losing his balance and falling, unable to get up, was reported the patient thought that he was on the ground for approximately 2 hours, EMS reported patient was covered in feces and urine, had denied seizures or loss of consciousness.? The ER workup reveal that the patient had acute rhabdomyolysis with a CPK of 22,000, troponin at the time was over 400 but there was no EKG changes and no angina equivalent symptoms. Patient was given IV fluids and oxygen support, admitted to the floor. This morning around 3:30 a.m., a rapid response was called, the patient was found pale, confused, minimally responsive with O2 sat of 40% while on 2 L and sick cannula that he had been on before, immediately a non-rebreather mask was placed but the patient appeared to have significant work of breathing and given the rapid progression, underlying history of myotonic muscular dystrophy the patient was taken to the ICU for further management.? I initially contemplated to placing on BiPAP however my concern is that the patient will continue to tire out and he will most likely need to be intubated.? Patient does not appear to be responding well to my questions at this point. ROS: ?Unable to obtain due to patient's mental status and current clinical condition Past Medical History:? As above Past Surgical History:? As above Family history: ?Unknown Social History:? 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 History of 1 pack per day smoking, no alcohol. CODE STATUS: FULL CODE Allergies: NKDA Home Medications: See Med Rec PHYSICAL EXAM: VS: ?Blood pressure 155/70, heart rate 89, respirations 17, O2 sat 40% on nasal cannula as reported by nurse during rapid response. General:? Alert not oriented.? Speaking in full sentences but answers do not appear to be coherent. Skin: ?Pale Intact, no lesions, edema, erythema, clubbing or cyanosis.? No ulcers. HEENT:? Head is normocephalic, atraumatic, pupils equal round reactive to light accommodation bilaterally.? Extraocular movements appear intact.? Buccal mucosa is moist, Neck is supple without lymphadenopathy. Cardiac:? Clear S1-S2, no murmurs rubs or gallops. Pulmonary:? Coarse lung sounds right base with rhonchi, clear otherwise. Abdomen:? Protuberant, positive bowel sounds in all 4 quadrants.? Soft, nontender upon palpation Musculoskeletal:? Moving all 4 extremities slowly, but upon request a major joints, there is no crepitus or tenderness.? The strength is 5/5 bilaterally and throughout all 4 extremities.? There is no leg edema , no calf tenderness , no leg asymmetry.? Gait not assessed at this point. Neurologic:? As above, otherwise no focal at this point.? Vascular:? 2+ pulses upper and lower extremities distally. SIGNIFICANT LABORATORY DATA:? Reviewed from this morning, will obtain new set of labs REVIEW OF IMAGES: ?Reviewed, will obtain new x-ray EKG REVIEW:? Sinus rhythm rate of 91 beats per minute. ?No ST elevations, no depressions.? QTC 390. ASSESSMENT AND PLAN: 1. Near respiratory arrest was likely due to aspiration 2. Hypoxic respiratory failure 3. Acute GI bleed (upper) 4. Significant thrombocytopenia of unknown etiology 5. Ongoing rhabdomyolysis 6. COVID-19 infection without evidence of pneumonia although him may developed 1 now from aspiration. 7. History recent rectal bleed without recurrence, followed by GI, no colonoscopy performed 8. History of myotonic muscular dystrophy 9. Abnormal troponin likely due to rhabdomyolysis, now improving. 10. Minor hypoalbuminemia Patient was transfer to the ICU emergently as he appears to the interior quickly, he shows signs of respiratory distress and my concern is he has progressive muscle fatigue given his underlying history of muscular dystrophy.? An ABG obtained shows pH of 7.22, pCO2 55.9, PO2 of 70 while on a non-rebreather mask therefore the patient was intubated. ?OG placed and both in good position. Will obtain a full set of labs, D-dimer, troponin EKG, chest x-ray.? IV fluids.? Cr catheter. During intubation it was noted that the patient had bright red blood within the pharynx, is likely that he aspirated this.? I will place him on Levaquin as the pt is allergic to Rocephin, will watch for QT prolongation, consult GI again as he had seen Dr. Lopez, beth Protonix load and drip, his platelets were reported to be 60,000 therefore platelets will be transfused and in the meantime fresh frozen plasma will be given. I will place a central line as the patient may require vasopressors. GI PROPHYLAXIS: ?Octreotide and PPI DVT PROPHYLAXIS:? Pneumatic stockings only Critical care time used for critical evaluation of this patient, diagnosis, treatment and coordination of care, review her records and documentation TOTAL CRITICAL CARE TIME 90 MIN . Patient's care was discussed in detail with Dr. Quintero.? He is aware of all the above as well as the plan of care for this patient. FORMERLY [facility], [facility] Past Medical History Medical History (Updated 10/23/21 @ 13:47 by Clyde Rincon MD) Hypertension Myotonic muscular dystrophy Tobacco abuse Social History Social History Household Members: None Housing: Apartment Do you presently have visiting nurse or other home services: Yes Patient Tobacco Use Status: Current everyday Tobacco user Tobacco use type: Cigarette Cigarette Packs Per Day: 20 Cigarettes Per Day: 400.0 service: No Current occupational status: disabled Meds Allergies Allergy/AdvReac Type Severity Reaction Status Date / Time ceftriaxone [From ROCEPHIN] Allergy Intermediate FACIAL Unverified 06/21/20 14:43 HIVES Active Medications: Current Medications Acetaminophen (Acetaminophen 325 Mg Tablet) 650 mg PO Q6H PRN PRN Reason: Pain, Mild (Pain Scale 1-3) Last Admin: 10/16/21 23:26 Dose: 650 mg Documented by: Sodium Chloride (Ns) 1,000 mls @ 100 mls/hr IVCONT .Q10H MYLENE Last Admin: 10/16/21 20:26 Dose: 100 mls/hr Documented by: Propofol (Diprivan) 1,000 mg in 100 mls @ 0 mls/hr IVCONT .Q0M MYLENE; Protocol Nicotine Polacrilex (Nicotine Polacrilex 2 Mg Gum) 2 mg BUCCAL Q2H PRN PRN Reason: nicotine cravings Ondansetron HCl (Ondansetron Hcl 4 Mg/2 Ml Vial) 4 mg IVPUSH Q8H PRN PRN Reason: Nausea and Vomiting Pharmacy Consult (Consult Rx Perform Med Rec) 1 each MISCELLANE ONCE PRN PRN Reason: Consult order Propofol (Propofol 200 Mg/20 Ml Vial) 50 mg IVPUSH ONCE ONE Stop: 10/17/21 03:55 Rocuronium Wilson (Rocuronium Wilson 50 Mg/5 Ml Vial) 40 mg IVPUSH ONCE ONE Stop: 10/17/21 03:57 Sodium Chloride (0.9 % Sodium Chloride Flush 3 Ml Syringe) 3 ml IVFLUSH [facility] Last Admin: 10/17/21 00:26 Dose: 3 ml Documented by: Home Medications Medication Instructions Recorded Confirmed Last Taken Type No Known Home Meds 10/16/21 10/16/21 Unknown History Physical Exam Vital Signs: Vital Signs: Last Vital Signs Temp 97.3 F 10/17/21 02:58 Pulse 89 10/17/21 02:58 Resp 17 10/17/21 02:58 BP 155/70 H 10/17/21 02:58 Pulse Ox 56 L 10/17/21 02:58 BMI result Body Mass Index 16.1 Results Labs CBC & Chem 7: 10/25/21 05:27 10/25/21 05:27 Labs: Short CBC 10/16/21 10/16/21 10/16/21 Range/Units 06:21 07:53 10:58 WBC 5.8 (4.8-10.8) X10*3/uL Hgb 16.9 (14.0-18.0) g/dl Hct 52.5 H (42.0-52.0) % Plt Count 106 L (160-400) X10*3/uL Troponin I High Sens 365.9 H* 436.0 H* (<3.5-35.0) ng/L 10/16/21 Range/Units 13:30 WBC (4.8-10.8) X10*3/uL Hgb 14.5 (14.0-18.0) g/dl Hct 45.8 (42.0-52.0) % Plt Count (160-400) X10*3/uL Troponin I High Sens (<3.5-35.0) ng/L BMP 10/16/21 07:23 Sodium 141 Potassium 4.1 Chloride 108 Carbon Dioxide 22 BUN 15 Creatinine 0.71 Calcium 9.7 Cardiac Enzymes 10/16/21 Range/Units 07:23 Total Creatine Kinase 51504 H (38-174) U/L Liver Function 10/16/21 Range/Units 07:23 Total Bilirubin 0.7 (0.0-1.0) mg/dL AST 470 H (5-37) U/L ALT 78 H (0-40) U/L Alkaline Phosphatase 109 (39-117) U/L Albumin 3.9 (3.5-5.0) g/dL Urine 10/16/21 Range/Units 08:01 Urine Color YELLOW Urine Appearance HAZY Urine pH 5.5 (5.0-8.0) Ur Specific Emery >= 1.030 H (1.005-1.025) Urine Protein 2+ H (NEG-TRACE) MG/DL Urine Glucose (UA) NEG (NEG) MG/DL
[2021-10-17 04:05] LABS: Mean Platelet Volume 10.8 fL (9.4-12.4); PLT CLUMP 1; Red Blood Count 5.08 X10*6/uL (4.60-5.80)
[2021-10-17 04:05] LABS: ABG Refer to POC result
[2021-10-17] MEDS: propofoL 200 MG/20 ML VIAL 50 MG IVPUSH (04:05)
[2021-10-17 04:07] LABS: Hematocrit 48.9 % (42.0-52.0); Hemoglobin 15.3 g/dl (14.0-18.0); Mean Corpuscular HGB Conc 31.3 g/dl (31.0-36.0); Mean Corpuscular Hemoglobin 30.1 pg (27.0-33.0); Mean Corpuscular Volume 96.3 fL (80.0-98.0); Red Cell Distribution Width 14.5 % (11.0-16.0)
[2021-10-17 04:08] LABS: White Blood Count 7.1 X10*3/uL (4.8-10.8)
[2021-10-17] MEDS: Rocuronium Bromide 50 MG/5 ML VIAL 40 MG IVPUSH (04:08)
--- NOTE | 2021-10-17 04:17 | PC.NURSE ---
Assumed care on pt around midnight, Pt was seen in room sleeping able to respond but weakly, denies any complain at first encounter, noted with weak loose cough, tried to suction with yankuer with minimal sputum obtained, tolerating O2 at 2L/min via NC, sating on the low 90s. Around 0250, staffs found pt minimally responsive, with agonal breath, very pale and cyanotic nail beds O2 sats only on th 40s-50s, UNIVERSITY RELATIONS DIRECTOR was called, suctioned pt, O2 via NRB in full place, pt was responsive when name called, O2 sats went up to the 70s, SR 90s-ST low 100s in tele, pt was transferred SHENG to ICU, report given to ANGELA Marroquin
[2021-10-17 04:18] LABS: D Dimer High Sensitivity 1849 NG/ML
[2021-10-17 04:26] LABS: Platelet Count 60 X10*3/uL (160-400)
[2021-10-17 04:29] LABS: Band Neutrophils Percent 29 % (3-5); Lymphocytes Absolute Manual 0.3 X10*3/uL (1.2-4.9); Lymphocytes Percent Manual 4 % (20-40); Monocytes Absolute Manual 0.3 X10*3/uL (0.1-1.2); Monocytes Percent Manual 4 % (2-11); Neutrophils Absolute Manual 6.5 X10*3/uL (2.0-8.3); Neutrophils Percent Manual 63 % (45-73)
[2021-10-17 04:30] LABS: Platelet Estimate DECREASED (NORMAL); Platelet Morphology Comment NORMAL; RBC Morphology NORMAL; Toxic Vacuolation PRESENT
[2021-10-17 04:31] LABS: Alanine Aminotransferase 89 U/L (0-40); Albumin Level 3.3 g/dL (3.5-5.0); Alkaline Phosphatase 84 U/L (39-117); Anion Gap 15 (12-20); Aspartate Amino Transferase 594 U/L (5-37); Bilirubin Total 0.6 mg/dL (0.0-1.0); Blood Urea Nitrogen 10 mg/dL (9-16); Calcium 8.6 mg/dL (8.4-10.2); Carbon Dioxide 21 mmol/L (22-29); Chloride 111 mmol/L (96-108); Creatinine Clr Calc Pharmacy 79.9; Estimated Glomerular Filt Rate > 60; Glucose Random 108 mg/dL (60-115); Potassium 3.5 mmol/L (3.3-5.1); Sodium 143 mmol/L (135-145); Total Protein 5.5 g/dL (6.5-8.0)
[2021-10-17] MEDS: propofoL 1,000 MG/100 ML VIAL 5.44 MG IVCONT (04:55)
--- NOTE | 2021-10-17 04:58 | W.PM.CCHP ---
Procedures Date of Service Date of Service: 10/17/21 Intubation Intubation Comments: ?Given that the patient developed progressive respiratory fatigue, RSI was followed, patient was preoxygenated, the above-mentioned medications were used for sedation and paralysis.? Using the GlideScope, the close was identified and using a 4.0 Blade, an ETT tube 7.5 was inserted via direct vision in a nontraumatic way.? ?Although as soon as I entered the oral cavity, handful of bright red blood was noted and aspirated from there. Post intubation, breath sounds were equal and bilateral,? ?Capnography shows a pCO2 32, SpO2 maintained.? vent settings AC, 20, 350, 5, 50%. ?The tube was secured at 23 cm at the upper lip. Patient tolerated the procedure well without complications.? Postop x-ray showed endotracheal tube approximately 5 cm above the aquiles,? it will be advanced 2 cm.? Now 25? ?At the lip Case was discussed in detail with Dr. Stacy.? He is aware of all the above as well as the plan of care for this patient. Consent for Procedure: Emergent-no informed consent obtained Time out performed: Yes Sedative: propofol Mg given: 50 Paralytic: rocuronium Mg given: 40 Laryngoscope: fiber optic video scope ET tube size: 7.5 ET tube uncuffed: Yes Tube secured depth (cm): 25 Tube secured location: lips Tube placement confirmation: visualized tube passing through cords, equal breath sounds bilaterally and confirmation by capnometry Patient tolerated procedure: well Intubation complications: none
[2021-10-17] MEDS: Pantoprazole Sodium 80 MG in 0.9 % Sodium Chloride 80 ML 10 MG IV ×2 (05:05→14:33)
[2021-10-17] MEDS: Pantoprazole Sodium 40 MG/10 ML VIAL 80 MG IVPUSH (05:05)
--- NOTE | 2021-10-17 05:18 | W.PM.CCHP ---
Procedures Date of Service Date of Service: 10/17/21 Abscess I/D Consent for Procedure: Emergent-no informed consent obtained Central Line Placement A quick time-out was made for clarification and proper patient identification, patient was positioned, landmarks were identified, US used to locate a large compressible IJ. The right neck was widely prepped and draped in a full sterile fashion. Ultrasound was used to locate again the right IJ, the vein was cannulated on the 1st pass with an 18 gauge thin needle, dark nonpulsatile blood return was obtained. The wire was threaded, a small incision was made at its base and dilator inserted. A triple-lumen central venous catheter was advanced into the vein up to the hub without problems, wired was removed. Ports had good blood return and flushed x3. The catheter was secured with 3 sutures at 3 sites, a Biopatch and dry sterile dressing were applied. Post procedure chest x-ray showed the line to be in good position without pneumothorax. No bleeding or complications noted.: Consent for Procedure: Emergent-no informed consent obtained Time out performed: Yes Sterile Technique Used: Yes Patient placed on monitor/pulse ox: Yes MD prep: mask, gown and gloves Central line prep: Chlorhexidine scrub Ultrasound used for placement: Yes Central line lumen inserted: triple Post procedure: sutured in place, good blood return, all ports aspirated, flushed, capped and sterile dressing applied Post procedure x-ray: tip of catheter in good position and no pneumothorax seen Patient tolerated procedure: well Complications: none
[2021-10-17] MEDS: Albumin Human 25 % 100 ML IV ×2 (06:00→06:49)
[2021-10-17] MEDS: Lactated Ringers 1,000 ML 999 ML IV (06:01)
[2021-10-17] MEDS: levoFLOXacin/D5W 500 MG/100 ML PIGGYBACK 100 MG IV (06:01)
--- NOTE | 2021-10-17 06:33 | PC.NURSE ---
To ICU at 0320. Lethargic, O2 sats 87-88% on NRB mask. ABG's drawn by resp therapist...7.. CASSANDRA Vazquez at bedside. Pt intubated with 7.5 ETT at 23 cm at the lip. PCXR done and reviewed by him. OGT inserted and placement confirmed by Xray. #16 FR peters inserted without difficulty and only 75 ml removed. Pt received propofol 50 mg iv bolus and rocuronium 40 mg iv for intubation. Propofol drip started at 20 mcg. Labs were drawn and plt count 60, dropped from 106 yesterday morning. Platelets and ffp ordered but awaiting placement of TLC to infuse. Albumin infusing, first bottle (pt to get 2 bottles). AT this time awaiting pCXR to confirm placement of TLC. Then pt to receive LR iv bolus and drip at 100 ml/hr. After sedation given, BP dropped and Levophed started with good effect.
[2021-10-17] MEDS: propofoL 1,000 MG/100 ML VIAL 13.61 MG IVCONT ×3 (07:47→20:44)
--- NOTE | 2021-10-17 08:00 | CA_ITS ---
Transthoracic Echocardiogram Patient (Last, First, Middle): Thien Avalos A Gender: Male Date of : 1960 Age: 61 Procedure Date: 10/17/2021 Procedure Type: Transthoracic Echocardiogram Location: ICU Height: 167.64 cm Weight: 45.36 kg BSA: 1.49 m2 Heart Rate: bpm BP: 125 / 66 mmHg Maintenance Shop Laborer: AVA Romero MD: Anahi Stacy MD Symptoms: hypotensive with elevated troponin Study Quality: Fair ECG Rhythm: Sinus Conclusions: - The left ventricular systolic function is low normal. The visually estimated ejection fraction is between 50-55%. The calculated ejection fraction is 56% by biplane method. - No obvious valvular pathology seen on this study. Findings Left Ventricle Normal left ventricular cavity size. There is normal left ventricular wall thickness. The left ventricular systolic function is low normal. The visually estimated ejection fraction is between 50-55%. The calculated ejection fraction is 56% by biplane method. There is no evidence of regional wall motion abnormalities. Diastolic function is normal for age. Right Ventricle Normal right ventricular cavity size and systolic function. Atria Both atria are normal in size. Aortic Valve There is a normal trileaflet aortic valve. There is no aortic valve stenosis. There is no aortic valve regurgitation. Mitral Valve The mitral valve appears normal. There is no mitral valve regurgitation. There is no mitral valve stenosis. Pulmonic Valve The pulmonic valve was not well visualized. Tricuspid Valve Normal tricuspid valve structure. There is trace tricuspid valve regurgitation. The pulmonary artery systolic pressure is normal. Great Vessels The aortic annulus, sinuses of valsalva, and asc aorta are normal in size. Venous The inferior vena cava is normal in size and collapses less than 50% with inspiration. (intubated) Pericardium/Pleural There is no evidence of pericardial effusion. Prior Study Comparison No significant change compared to prior study dated: 08/01/2018. Recommendations, Care & Conclusions No obvious valvular pathology seen on this study. Measurements 2D Linear Measurements IVSd: 0.83 0.6-0.9/0.6-1.0 cm LVIDd: 4.16 3.9-5.3/4.2-5.9 cm LVIDd Index: 2.79 2.4-3.2/2.2-3.1 cm/m2 LVIDs: 3.06 2.0-3.6 cm LVPWd: 0.87 0.7-1.1 cm Ao Root: 3.20 2.1-3.5 cm LA Diam: 2.60 2.7-3.8/3.0-4.0 cm LAIDs Index: 1.74 1.5-2.3 cm/m2 LV Mass: 134.09 67-162/88-224 g LV Mass Index: 89.99 43-95/49-115 g/m2 LVOT Diam: 2.10 3.0+(-)1.3 cm 2D Systolic Function EF 4C: 55.00 >55% EF 2C: 56.50 >55% EF BiP: 55.50 >55% Mitral Valve MV Pk E: 0.58 MV PK A: 0.51 MV Decel Time: 221.00 E/A: 1.10 E'Lateral: 9.90 E'Medial: 7.18 E/E' Med: 8.10 E/E' Lat: 5.80 PHT: 65.00 MVA PHT: 3.38 Decel Rawlins: 2.63 Aortic Valve AoV Pk Mane: 1.10 AoV Mn Mane: 0.68 AoV VTI: 0.19 AoV Pk Grad: 5.00 Aov Mn Grad: 2.00 LAMBERT Cont.VTI: 2.68 LVOT LVOT Pk Mane: 0.83 LVOT Mn Mane: 0.53 LVOT VTI: 0.15 LVOT Pk Grad: 3.00 LVOT Mn Grad: 1.00 LVOT Diam: 2.10 LVOT Area: 3.46 Diastolic Function MV Pk E: 0.58 MV Pk A: 0.51 E/A: 1.10 E'Medial: 7.18 E/E' Med: 8.10 E' Laterial: 9.90 E/E' Lat: 5.80 Right Ventricle TAPSE (mm): 1.88 TVS' Mane: 12.90 Tricuspid Valve TR Pk Mane: 1.41 TR Pk Grad: 8.00 Great Vessels Aorta Ao Root-2D: 3.20 2.0-3.7 cm Ao Asc: 3.50 2.1-3.4 cm Updated in Other Vendor System with Status of Final Chapin Myers MD electronically signed on 10/17/2021 4:45:55 PM with status of Final
[2021-10-17 08:02] LABS: VBG Base Excess -1.7 mmol/L; VBG HCO3 22 mmol/L (22-26); VBG pCO2 34 mmHg; VBG pH 7.41 (7.32-7.43); VBG pO2 44 mmHg
[2021-10-17 08:51] LABS: Hematocrit 37.4 % (42.0-52.0); Hemoglobin 12.2 g/dl (14.0-18.0); Mean Corpuscular HGB Conc 32.6 g/dl (31.0-36.0); Mean Corpuscular Hemoglobin 30.3 pg (27.0-33.0); Mean Platelet Volume 9.8 fL (9.4-12.4); Platelet Count 70 X10*3/uL (160-400); Red Blood Count 4.02 X10*6/uL (4.60-5.80); Red Cell Distribution Width 14.5 % (11.0-16.0)
[2021-10-17 08:56] LABS: INTERNATIONAL NORM RATIO 1.2 (0.9-1.1); Prothrombin Time 14.1 SEC (9.9-13.0)
[2021-10-17 08:59] LABS: Partial Thromboplastin Time 31.9 SEC (24.1-38.0)
[2021-10-17 09:15] LABS: Alanine Aminotransferase 63 U/L (0-40); Albumin Level 3.7 g/dL (3.5-5.0); Alkaline Phosphatase 58 U/L (39-117); Anion Gap 13 (12-20); Aspartate Amino Transferase 385 U/L (5-37); Bilirubin Total 1.1 mg/dL (0.0-1.0); Blood Urea Nitrogen 10 mg/dL (9-16); Calcium 8.7 mg/dL (8.4-10.2); Carbon Dioxide 24 mmol/L (22-29); Chloride 110 mmol/L (96-108); Creatinine Clr Calc Pharmacy 79.9; Estimated Glomerular Filt Rate > 60; Glucose Random 82 mg/dL (60-115); Potassium 3.8 mmol/L (3.3-5.1); Sodium 143 mmol/L (135-145); Total Protein 5.3 g/dL (6.5-8.0)
[2021-10-17] MEDS: 0.9 % Sodium Chloride 1,000 ML 100 ML IVCONT (09:34)
--- NOTE | 2021-10-17 09:36 | MHC.CLN ---
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
--- NOTE | 2021-10-17 09:40 | P.CDIC_ITS ---
CDI Concurrent Query Documentation Clarification: PHYSICIAN'S DOCUMENTATION REQUEST Date of Query: 10/17/21 0941 Patient Name: Thien Avalos Admit Date: 10/16/21 Dear Doctor, A review of the medical record indicates additional documentation may be needed. Please review below and update the documentation accordingly. Clinical Indicators: Risk Factors/Clinical Indicators/Treatments Patient admitted with Rhabdo, multiple falls, no hypoxia upon admit. Rapid response called patient become hypoxic, pale and confused emergent intubation ICU Admit for respiratory failure Possible, probable, suspected etiology of the confusion: Encephalopathy or other etiology * Metabolic * Septic * Toxic * Toxic metabolic * Hypoxic * Other (please specify) * Unable to determine Use of terms such as suspected, likely, concern for, or probable (associated with a specific diagnosis that is being evaluated, monitored, or treated as if it exists) are acceptable and can be coded in the inpatient setting, when documented at the time of discharge. Thank you, Gisel Guillen [facility], CDIS Extension: [phone] Please use your independent medical judgment in providing your response. THIS QUERY IS PART OF THE PERMANENT MEDICAL RECORD
[2021-10-17 10:10] LABS: Venous Blood Gas Refer to POC result
--- NOTE | 2021-10-17 10:24 | MHC.SLORD ---
Speech Language Pathology Order Status: Speech Therapy consult requested by Dr. Latif, 10/16. Attempted to see PT today for evaluation, currently intubated. CLEANING STAFF SUPERVISOR will monitor and assess pending improved respiratory status, appropriateness for eval.
--- NOTE | 2021-10-17 12:21 | MHC.CM.PN ---
Addendum entered by Cara Walton 10/17/21 13:48: Call placed to contact number again: Rosendo, pt's nephew answered and directed this CM to his live in [facility], Aristeo. Per conversation w/Aristeo, he resides with Thien and Rosendo and serves as Rosendo's compensated director of health care marketing. Aristeo states he was the significant other to Barbara before she passed. Aristeo confirmed that Thien has no family or friends other than him and Rosendo. He also states he didn't think Thien had any advanced directives or formal HCP appointments. Thien is the legal coguardian of Rosendo per Aristeo. Call placed to Rosendo's director of outpatient services at [facility], Ryan Savageregino [phone] - she states she will send a clinician to the home to test Rosendo and Aristeo for COVID and notify the coguardian of Thien's hospitalization. Aristeo states he is comfortable and willing to assist with care decisions for Thien as he is the closest friend Thien has. Will update ICU on contact information Original Note: Pt is presently intubated in ICU and unable to provide any information. EMR reviewed: no contact listed: Review of [employer] notes a sister, Barbara Sutherland at the same address and number. Call placed to [phone]: an elderly male answered and stated there was no Barbara or Thien residing there. Call placed to pt's PCP, Dr. Dunlap: they stated they have no contact information listed nor do they have any advanced directives: HPC/MOLST on file. Pt was last seen 04/05/2019 and has no showed for all appointments following this date. The phone number they have is [phone] also. Google search notes an obituary for Barbara Sutherland who passed in 2014 at [facility]. The obituary lists among her survivors as pt and two sons. 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 Pt has an autistic nephew(Barbara's son) per continued searching through past visit hx but with the same contact numbers. CM to continue searching for information to assist with decision making and d/c planning.
--- NOTE | 2021-10-17 12:46 | PM.GIPN ---
Subjective Subjective Date of Service: 10/17/21 Interval History: Patient became hypoxic overnight and required intubation, non verbal per report he had blood in the pharynx he has had chronic low platelets per CBC review till at least 2018 no evidence of liver disease per nurse, gastric lavage was negative. Critical Care Time (minutes): 0 Physical Exam Vital Signs: Vital Signs: Last Vital Signs Temp 98 F 10/17/21 03:30 Pulse 81 10/17/21 12:00 Resp 18 10/17/21 12:00 BP 150/64 H 10/17/21 12:00 Pulse Ox 99 10/17/21 12:00 BMI result Body Mass Index 16.1 Const: General: ill appearing and patient obtunded Nutritional Appearance: thin Orientation/consciousness: patient obtunded Resp: Effort & Inspection: abnormal respiratory pattern Auscultation: crackles Cardio: Jugular venous distension: no JVD Rate: regular rate Rhythm: regular rhythm GI: Inspection: Yes normal to inspection Auscultation: normal bowel sounds Skin: General skin exam: no rashes or lesions noted Neuro: General: patient obtunded Extrem: General: Yes normal to inspection Objective Data Labs CBC & Chem 7: 10/17/21 08:20 10/17/21 08:19 Labs: Laboratory Results - last 24 hr 10/16/21 10/16/21 10/17/21 12:48 13:30 03:22 WBC RBC Hgb 14.5 Hct 45.8 MCV MCH MCHC RDW Plt Count MPV Immature Gran % (Auto) Neut % (Auto) Lymph % (Auto) [place] % (Auto) Eos % (Auto) Baso % (Auto) Lymph # (Auto) [place] # (Auto) Eos # (Auto) Baso # (Auto) Abs Immat Gran (auto) Absolute Neuts (auto) Absolute Nucleated RBC Nucleated RBC % (auto) Neutrophils % (Manual) Band Neutrophils % Lymphocytes % (Manual) Monocytes % (Manual) Abs Neuts (Manual) Lymphocytes # (Manual) Monocytes # (Manual) Toxic Vacuolation Platelet Estimate Plt Morphology Comment RBC Morphology Smear Path Review PT INR APTT D-Dimer High Sensitivty O2 Saturation ABG pH at Pt Temp ABG pCO2 at Pt Temp ABG pO2 at Pt Temp ABG HCO3 ABG Base Excess (Actual) VBG pH VBG pCO2 VBG pO2 VBG HCO3 VBG O2 Saturation VBG Base Excess Sodium Potassium Chloride Carbon Dioxide Anion Gap BUN Creatinine Estim Creat Clear Calc Estimated GFR POC Glucose 118 H Random Glucose Calcium Total Bilirubin AST ALT Alkaline Phosphatase Total Creatine Kinase Troponin I High Sens Total Protein Albumin Stool Occult Blood POSITIVE Blood Type Antibody Screen 10/17/21 10/17/21 10/17/21 03:35 03:52 03:52 WBC 7.1 RBC 5.08 Hgb 15.3 Hct 48.9 MCV 96.3 MCH 30.1 MCHC 31.3 RDW 14.5 Plt Count 60 L D MPV 10.8 Immature Gran % (Auto) Cancelled Neut % (Auto) Cancelled Lymph % (Auto) Cancelled [place] % (Auto) Cancelled Eos % (Auto) Cancelled Baso % (Auto) Cancelled Lymph # (Auto) Cancelled [place] # (Auto) Cancelled Eos # (Auto) Cancelled Baso # (Auto) Cancelled Abs Immat Gran (auto) Cancelled Absolute Neuts (auto) Cancelled Absolute Nucleated RBC 0.000 Nucleated RBC % (auto) 0.0 Neutrophils % (Manual) 63 Band Neutrophils % 29 H Lymphocytes % (Manual) 4 L Monocytes % (Manual) 4 Abs Neuts (Manual) 6.5 Lymphocytes # (Manual) 0.3 L Monocytes # (Manual) 0.3 Toxic Vacuolation PRESENT Platelet Estimate DECREASED Plt Morphology Comment NORMAL RBC Morphology NORMAL Smear Path Review SEE NOTE PT INR APTT D-Dimer High Sensitivty O2 Saturation 89.0 ABG pH at Pt Temp 7.22 L ABG pCO2 at Pt Temp 56 H ABG pO2 at Pt Temp 70 L ABG HCO3 23 ABG Base Excess (Actual) -4.6 VBG pH VBG pCO2 VBG pO2 VBG HCO3 VBG O2 Saturation VBG Base Excess Sodium 143 Potassium 3.5 Chloride 111 H Carbon Dioxide 21 L Anion Gap 15 BUN 10 Creatinine 0.63 Estim Creat Clear Calc 79.9 Estimated GFR > 60 POC Glucose Random Glucose 108 Calcium 8.6 D Total Bilirubin 0.6 AST 594 H ALT 89 H Alkaline Phosphatase 84 D Total Creatine Kinase 93354 H Troponin I High Sens Total Protein 5.5 L D Albumin 3.3 L Stool Occult Blood Blood Type Antibody Screen 10/17/21 10/17/21 10/17/21 03:52 03:52 04:43 WBC RBC Hgb Hct MCV MCH MCHC RDW Plt Count MPV Immature Gran % (Auto) Neut % (Auto) Lymph % (Auto) [place] % (Auto) Eos % (Auto) Baso % (Auto) Lymph # (Auto) [place] # (Auto) Eos # (Auto) Baso # (Auto) Abs Immat Gran (auto) Absolute Neuts (auto) Absolute Nucleated RBC Nucleated RBC % (auto) Neutrophils % (Manual) Band Neutrophils % Lymphocytes % (Manual) Monocytes % (Manual) Abs Neuts (Manual) Lymphocytes # (Manual) Monocytes # (Manual) Toxic Vacuolation Platelet Estimate Plt Morphology Comment RBC Morphology Smear Path Review PT INR APTT D-Dimer High Sensitivty 1849 O2 Saturation ABG pH at Pt Temp ABG pCO2 at Pt Temp ABG pO2 at Pt Temp ABG HCO3 ABG Base Excess (Actual) VBG pH VBG pCO2 VBG pO2 VBG HCO3 VBG O2 Saturation VBG Base Excess Sodium Potassium Chloride Carbon Dioxide Anion Gap BUN Creatinine Estim Creat Clear Calc Estimated GFR POC Glucose Random Glucose Calcium Total Bilirubin AST ALT Alkaline Phosphatase Total Creatine Kinase Troponin I High Sens 188.0 H* D Total Protein Albumin Stool Occult Blood Blood Type A Positive Antibody Screen NEGATIVE 10/17/21 10/17/21 10/17/21 07:56 08:19 08:19 WBC RBC Hgb Hct MCV MCH MCHC RDW Plt Count MPV Immature Gran % (Auto) Neut % (Auto) Lymph % (Auto) [place] % (Auto) Eos % (Auto) Baso % (Auto) Lymph # (Auto) [place] # (Auto) Eos # (Auto) Baso # (Auto) Abs Immat Gran (auto) Absolute Neuts (auto) Absolute Nucleated RBC Nucleated RBC % (auto) Neutrophils % (Manual) Band Neutrophils % Lymphocytes % (Manual) Monocytes % (Manual) Abs Neuts (Manual) Lymphocytes # (Manual) Monocytes # (Manual) Toxic Vacuolation Platelet Estimate Plt Morphology Comment RBC Morphology Smear Path Review PT 14.1 H INR 1.2 H APTT 31.9 D-Dimer High Sensitivty O2 Saturation ABG pH at Pt Temp ABG pCO2 at Pt Temp ABG pO2 at Pt Temp ABG HCO3 ABG Base Excess (Actual) VBG pH 7.41 VBG pCO2 34 VBG pO2 44 VBG HCO3 22 VBG O2 Saturation 75.0 VBG Base Excess -1.7 Sodium 143 Potassium 3.8 Chloride 110 H Carbon Dioxide 24 Anion Gap 13 BUN 10 Creatinine 0.63 Estim Creat Clear Calc 79.9 Estimated GFR > 60 POC Glucose Random Glucose 82 Calcium 8.7 Total Bilirubin 1.1 H AST 385 H ALT 63 H Alkaline Phosphatase 58 D Total Creatine Kinase 56801 H D Troponin I High Sens Total Protein 5.3 L Albumin 3.7 Stool Occult Blood Blood Type Antibody Screen 10/17/21 08:20 WBC 4.0 L RBC 4.02 L D Hgb 12.2 L D Hct 37.4 L D MCV 93.0 MCH 30.3 MCHC 32.6 RDW 14.5 Plt Count 70 L MPV 9.8 Immature Gran % (Auto) Neut % (Auto) Lymph % (Auto) [place] % (Auto) Eos % (Auto) Baso % (Auto) Lymph # (Auto) [place] # (Auto) Eos # (Auto) Baso # (Auto) Abs Immat Gran (auto) Absolute Neuts (auto) Absolute Nucleated RBC 0.000 Nucleated RBC % (auto) 0.0 Neutrophils % (Manual) Band Neutrophils % Lymphocytes % (Manual) Monocytes % (Manual) Abs Neuts (Manual) Lymphocytes # (Manual) Monocytes # (Manual) Toxic Vacuolation Platelet Estimate Plt Morphology Comment RBC Morphology Smear Path Review PT INR APTT D-Dimer High Sensitivty O2 Saturation ABG pH at Pt Temp ABG pCO2 at Pt Temp ABG pO2 at Pt Temp ABG HCO3 ABG Base Excess (Actual) VBG pH VBG pCO2 VBG pO2 VBG HCO3 VBG O2 Saturation VBG Base Excess Sodium Potassium Chloride Carbon Dioxide Anion Gap BUN Creatinine Estim Creat Clear Calc Estimated GFR POC Glucose Random Glucose Calcium Total Bilirubin AST ALT Alkaline Phosphatase Total Creatine Kinase Troponin I High Sens Total Protein Albumin Stool Occult Blood Blood Type Antibody Screen Procedures Date of Service Date of Service: 10/17/21 Progress Note: A&P Assessment and plan (1) COVID-19: Status: Acute Assessment and Plan: 1/ Acute hypoxic respiratory failure with blood noted in pharynx but neg gastric lavage and no melena reported by MELANIA, jc mucosal trauma 2/2 low platelets, no evidence to suggest he has cirrhosis PLAN: 1/ No endoscopic intervention at this time, cont to monitor clinically, can reassess if clinical situation worsens or overt GI bleeding 2/ Can cont with low dose PPI to reduce risk of stress ulceration, consider stopping octreotide Fall Risk Details Current Medications: Current Medications Acetaminophen (Acetaminophen 325 Mg Tablet) 650 mg PO Q6H PRN PRN Reason: Pain, Mild (Pain Scale 1-3) Last Admin: 10/16/21 23:26 Dose: 650 mg Documented by: Sodium Chloride (Ns) 1,000 mls @ 100 mls/hr IVCONT .Q10H [facility] Last Admin: 10/17/21 09:34 Dose: 100 mls/hr Documented by: Propofol (Diprivan) 1,000 mg in 100 mls @ 0 mls/hr IVCONT .Q0M [facility]; Protocol Last Admin: 10/17/21 07:47 Dose: 50 mcg/kg/min, 13.61 mls/hr Documented by: Norepinephrine Bitartrate (Levophed) 8 mg in 250 mls @ 0 mls/hr IVCONT .Q0M MYLENE; Protocol Last Titration: 10/17/21 08:00 Dose: 0.03 mcg/kg/min, 2.55 mls/hr Documented by: Pantoprazole Sodium 80 mg/ (Sodium Chloride) 100 mls @ 10 mls/hr IV .Q10H MYLENE Last Admin: 10/17/21 05:05 Dose: 8 mg/hr, 10 mls/hr Documented by: Fentanyl (Sublimaze/Ns) 1,000 mcg in 100 mls @ 0 mls/hr IVCONT .Q0M MYLENE; Protocol Naloxone HCl (Naloxone Hcl 0.4 Mg/Ml Vial) 0.2 mg IVPUSH Q2M PRN PRN Reason: Excessive sedation or RR < 8 Nicotine Polacrilex (Nicotine Polacrilex 2 Mg Gum) 2 mg BUCCAL Q2H PRN PRN Reason: nicotine cravings Pharmacy Consult (Consult Rx Perform Med Rec) 1 each MISCELLANE ONCE PRN PRN Reason: Consult order Sodium Chloride (0.9 % Sodium Chloride Flush 3 Ml Syringe) 3 ml IVFLUSH QSHIFT [facility] Last Admin: 10/17/21 12:29 Dose: Not Given Documented by: Time Spent With Patient Time: Total time spent is greater than 50% in coordination of care (as documented) at patient's floor/unit and/or counseling patient: Time with patient: 15 - 24 minutes Quality Stroke Does the patient have a stroke diagnosis?: No VTE Prior VTE?: No VTE Risk Level:: Medical - moderate - high VTE Device Contraindication: N/A - Device Ordered VTE Drug Contraindication: N/A - Med Ordered
--- NOTE | 2021-10-17 16:05 | P.PNCC_ITS ---
Subjective Subjective Date of Service: 10/17/21 Interval History: 61-year-old gentleman underlying hypertension and muscular dystrophy as well came in with COVID-19 pneumonitis and acute hypoxemic respiratory failure remained compensated briefly and all of a sudden it appeared that there might have been some bleeding and the considered possibly to be upper GI because there was blood blood found in his pharynx but he had a precipitous drop in his oxygen saturation and the and became encephalopathic requiring emergent intubation and central line placement and brought down to the emergency it to the ICU and he had very funny EKG with very prominent T-waves not tall and symmetric and he was metabolically normal but the he does prolonged QT interval but he never change R-wave progression QRS morphology nor did he have any progressive changes in his ST segments so I do not know if this represents some form of channel opt the or propofol is creating some of this issue but we did se rial EKGs and he did have a small but relatively insignificant bump in his troponin he had evidence of rhabdomyolysis with 23,000 CPK but no evidence of renal injury Critical Care Time (minutes): 60 Physical Exam Vital Signs: Vital Signs: Last Vital Signs Temp 98 F 10/17/21 03:30 Pulse 67 10/17/21 15:00 Resp 18 10/17/21 15:00 BP 141/68 H 10/17/21 15:00 Pulse Ox 99 10/17/21 15:00 BMI result Body Mass Index 16.1 he is sedated and intubated but nonfocal bedside echo demonstrates fairly preserved left ventricular function but definitely no segmental wall motion abnormality and no primary valve or pericardial disease abdomen is soft benign no organomegaly lungs no accessory muscle use no event issues sounds no diaphragm effort Objective Data Labs CBC & Chem 7: 10/18/21 05:30 10/18/21 05:30 Labs: Laboratory Results - last 24 hr 10/17/21 10/17/21 10/17/21 03:22 03:35 03:52 WBC 7.1 RBC 5.08 Hgb 15.3 Hct 48.9 MCV 96.3 MCH 30.1 MCHC 31.3 RDW 14.5 Plt Count 60 L D MPV 10.8 Immature Gran % (Auto) Cancelled Neut % (Auto) Cancelled Lymph % (Auto) Cancelled [place] % (Auto) Cancelled Eos % (Auto) Cancelled Baso % (Auto) Cancelled Lymph # (Auto) Cancelled [place] # (Auto) Cancelled Eos # (Auto) Cancelled Baso # (Auto) Cancelled Abs Immat Gran (auto) Cancelled Absolute Neuts (auto) Cancelled Absolute Nucleated RBC 0.000 Nucleated RBC % (auto) 0.0 Neutrophils % (Manual) 63 Band Neutrophils % 29 H Lymphocytes % (Manual) 4 L Monocytes % (Manual) 4 Abs Neuts (Manual) 6.5 Lymphocytes # (Manual) 0.3 L Monocytes # (Manual) 0.3 Toxic Vacuolation PRESENT Platelet Estimate DECREASED Plt Morphology Comment NORMAL RBC Morphology NORMAL Smear Path Review SEE NOTE PT INR APTT D-Dimer High Sensitivty O2 Saturation 89.0 ABG pH at Pt Temp 7.22 L ABG pCO2 at Pt Temp 56 H ABG pO2 at Pt Temp 70 L ABG HCO3 23 ABG Base Excess (Actual) -4.6 VBG pH VBG pCO2 VBG pO2 VBG HCO3 VBG O2 Saturation VBG Base Excess Sodium Potassium Chloride Carbon Dioxide Anion Gap BUN Creatinine Estim Creat Clear Calc Estimated GFR POC Glucose 118 H Random Glucose Calcium Total Bilirubin AST ALT Alkaline Phosphatase Total Creatine Kinase Troponin I High Sens Total Protein Albumin Blood Type Antibody Screen 10/17/21 10/17/21 10/17/21 03:52 03:52 03:52 WBC RBC Hgb Hct MCV MCH MCHC RDW Plt Count MPV Immature Gran % (Auto) Neut % (Auto) Lymph % (Auto) [place] % (Auto) Eos % (Auto) Baso % (Auto) Lymph # (Auto) [place] # (Auto) Eos # (Auto) Baso # (Auto) Abs Immat Gran (auto) Absolute Neuts (auto) Absolute Nucleated RBC Nucleated RBC % (auto) Neutrophils % (Manual) Band Neutrophils % Lymphocytes % (Manual) Monocytes % (Manual) Abs Neuts (Manual) Lymphocytes # (Manual) Monocytes # (Manual) Toxic Vacuolation Platelet Estimate Plt Morphology Comment RBC Morphology Smear Path Review PT INR APTT D-Dimer High Sensitivty 1849 O2 Saturation ABG pH at Pt Temp ABG pCO2 at Pt Temp ABG pO2 at Pt Temp ABG HCO3 ABG Base Excess (Actual) VBG pH VBG pCO2 VBG pO2 VBG HCO3 VBG O2 Saturation VBG Base Excess Sodium 143 Potassium 3.5 Chloride 111 H Carbon Dioxide 21 L Anion Gap 15 BUN 10 Creatinine 0.63 Estim Creat Clear Calc 79.9 Estimated GFR > 60 POC Glucose Random Glucose 108 Calcium 8.6 D Total Bilirubin 0.6 AST 594 H ALT 89 H Alkaline Phosphatase 84 D Total Creatine Kinase 10708 H Troponin I High Sens 188.0 H* D Total Protein 5.5 L D Albumin 3.3 L Blood Type Antibody Screen 10/17/21 10/17/21 10/17/21 04:43 07:56 08:19 WBC RBC Hgb Hct MCV MCH MCHC RDW Plt Count MPV Immature Gran % (Auto) Neut % (Auto) Lymph % (Auto) [place] % (Auto) Eos % (Auto) Baso % (Auto) Lymph # (Auto) [place] # (Auto) Eos # (Auto) Baso # (Auto) Abs Immat Gran (auto) Absolute Neuts (auto) Absolute Nucleated RBC Nucleated RBC % (auto) Neutrophils % (Manual) Band Neutrophils % Lymphocytes % (Manual) Monocytes % (Manual) Abs Neuts (Manual) Lymphocytes # (Manual) Monocytes # (Manual) Toxic Vacuolation Platelet Estimate Plt Morphology Comment RBC Morphology Smear Path Review PT INR APTT D-Dimer High Sensitivty O2 Saturation ABG pH at Pt Temp ABG pCO2 at Pt Temp ABG pO2 at Pt Temp ABG HCO3 ABG Base Excess (Actual) VBG pH 7.41 VBG pCO2 34 VBG pO2 44 VBG HCO3 22 VBG O2 Saturation 75.0 VBG Base Excess -1.7 Sodium 143 Potassium 3.8 Chloride 110 H Carbon Dioxide 24 Anion Gap 13 BUN 10 Creatinine 0.63 Estim Creat Clear Calc 79.9 Estimated GFR > 60 POC Glucose Random Glucose 82 Calcium 8.7 Total Bilirubin 1.1 H AST 385 H ALT 63 H Alkaline Phosphatase 58 D Total Creatine Kinase 59127 H D Troponin I High Sens Total Protein 5.3 L Albumin 3.7 Blood Type A Positive Antibody Screen NEGATIVE 10/17/21 10/17/21 08:19 08:20 WBC 4.0 L RBC 4.02 L D Hgb 12.2 L D Hct 37.4 L D MCV 93.0 MCH 30.3 MCHC 32.6 RDW 14.5 Plt Count 70 L MPV 9.8 Immature Gran % (Auto) Neut % (Auto) Lymph % (Auto) [place] % (Auto) Eos % (Auto) Baso % (Auto) Lymph # (Auto) [place] # (Auto) Eos # (Auto) Baso # (Auto) Abs Immat Gran (auto) Absolute Neuts (auto) Absolute Nucleated RBC 0.000 Nucleated RBC % (auto) 0.0 Neutrophils % (Manual) Band Neutrophils % Lymphocytes % (Manual) Monocytes % (Manual) Abs Neuts (Manual) Lymphocytes # (Manual) Monocytes # (Manual) Toxic Vacuolation Platelet Estimate Plt Morphology Comment RBC Morphology Smear Path Review PT 14.1 H INR 1.2 H APTT 31.9 D-Dimer High Sensitivty O2 Saturation ABG pH at Pt Temp ABG pCO2 at Pt Temp ABG pO2 at Pt Temp ABG HCO3 ABG Base Excess (Actual) VBG pH VBG pCO2 VBG pO2 VBG HCO3 VBG O2 Saturation VBG Base Excess Sodium Potassium Chloride Carbon Dioxide Anion Gap BUN Creatinine Estim Creat Clear Calc Estimated GFR POC Glucose Random Glucose Calcium Total Bilirubin AST ALT Alkaline Phosphatase Total Creatine Kinase Troponin I High Sens Total Protein Albumin Blood Type Antibody Screen Progress Note: A&P Assessment and plan (1) Rectal bleeding: Status: Acute (2) COVID-19: Status: Acute (3) Rhabdomyolysis: Status: Acute (4) Elevated troponin: Status: Acute (5) Short QT interval on electrocardiogram: Status: Acute (6) Acute hypoxemic respiratory failure: Status: Acute Assessment and Plan: plan is to maintain ventilator support and sedation and wean the FiO2 follow serial bedside echo sin EKGs to be sure this is not an ischemic manifestation and will start him on antiviral therapy along with Decadron but no anticoagulation due to the rectal bleeding and GI was called Quality Stroke Does the patient have a stroke diagnosis?: No VTE Prior VTE?: No VTE Risk Level:: Medical - moderate - high VTE Device Contraindication: N/A - Device Ordered VTE Drug Contraindication: N/A - Med Ordered
[2021-10-17] MEDS: dexAMETHasone sod phosphate 4 MG/ML VIAL 6 MG IVPUSH (16:37)
[2021-10-17 16:44] LABS: Imm Gran Abs Auto 0.01 X10*3/uL (0.00-0.03); Imm Gran Pct Auto 0.2 % (0.0-0.4); MANUAL DIFF FLAG SCAN; Mean Platelet Volume 9.9 fL (9.4-12.4); PLT CLUMP 1; SCAN SMEAR FLAG 1
[2021-10-17 16:46] LABS: Hematocrit 34.6 % (42.0-52.0); Hemoglobin 11.5 g/dl (14.0-18.0); Lymphocytes Absolute Auto 0.4 X10*3/uL (1.2-4.9); Lymphocytes Percent Auto 9.9 % (20-40); Mean Corpuscular HGB Conc 33.2 g/dl (31.0-36.0); Mean Corpuscular Hemoglobin 30.5 pg (27.0-33.0); Mean Corpuscular Volume 91.8 fL (80.0-98.0); Monocytes Absolute Auto 0.1 X10*3/uL (0.1-1.2); Monocytes Percent Auto 2.7 % (2-11); Neutrophils Absolute Auto 3.5 x10*3/uL (2.0-8.3); Neutrophils Percent Auto 87.2 % (45-73); Red Blood Count 3.77 X10*6/uL (4.60-5.80); Red Cell Distribution Width 14.5 % (11.0-16.0)
[2021-10-17 16:50] LABS: Platelet Count 60 X10*3/uL (160-400); White Blood Count 4.1 X10*3/uL (4.8-10.8)
[2021-10-17 16:52] LABS: SLIDE REVIEW VERIFIED
[2021-10-17 16:57] LABS: Anion Gap 10 (12-20); Blood Urea Nitrogen 8 mg/dL (9-16); Calcium 8.4 mg/dL (8.4-10.2); Carbon Dioxide 24 mmol/L (22-29); Chloride 110 mmol/L (96-108); Creatinine Clr Calc Pharmacy 86.8; Estimated Glomerular Filt Rate > 60; Glucose Random 76 mg/dL (60-115); Potassium 3.2 mmol/L (3.3-5.1); Sodium 141 mmol/L (135-145)
[2021-10-17 17:15] LABS: Troponin-I High Sensitivity 506.2 ng/L (<3.5-35.0)
[2021-10-18] VITALS (30 sets, daily range): BP systolic 119–175; BP diastolic 52–81; PULSE 38–73; RESP 18–20; TEMP 34.5–37.1; O2SAT 96–100
--- NOTE | 2021-10-18 | ECG_ITS ---
Test Reason : cp Blood Pressure : / mmHG Vent. Rate : 063 BPM Atrial Rate : 000 BPM P-R Int : 000 ms QRS Dur : 084 ms QT Int : 486 ms P-R-T Axes : 000 066 090 degrees QTc Int : 497 ms Artifact in tracing Likely sinus rhythm Nonspecific ST abnormality Abnormal ECG When compared with ECG of 17-OCT-2021 23:39, No significant changes seen Referred By: Yannick Vazquez Electronically Signed By:AWA DYKES
[2021-10-18] MEDS: Pantoprazole Sodium 80 MG in 0.9 % Sodium Chloride 80 ML 10 MG IV ×3 (01:08→18:29)
[2021-10-18] MEDS: propofoL 1,000 MG/100 ML VIAL 10.89 MG IVCONT (03:44)
--- NOTE | 2021-10-18 04:46 | PC.NURSE ---
Assumed care of pt at 1900. Pt on Pressure Control vent settings. O2 sats are good. Good sedation effect on Propofol at 50 mcg/kg/min but pt started to become bradycardic to a rate of 40's. Propofol decreased to 30 mcg but it was not enough and pt started to become restless. Yannick TRUJILLO aware of bradycardia and propofol rate currently at 35 mcg. If pt continues cortney, then plan is to add fentanyl drip and decrease propofol. Rhythm shows deep t wave inversions in Inferior leads and st elevations in other leads. Yannick TRUJILLO informed and 12 lead EKG done and reviewed by him. U/O is good. No signs/symptoms of bleeding.
[2021-10-18] MEDS: Lactated Ringers 500 ML 999 ML IV (05:15)
[2021-10-18 05:32] LABS: VBG Base Excess -1.2 mmol/L; VBG HCO3 20 mmol/L (22-26); VBG pCO2 25 mmHg; VBG pH 7.51 (7.32-7.43); VBG pO2 43 mmHg
[2021-10-18 05:41] LABS: Venous Blood Gas Refer to POC result
[2021-10-18 05:55] LABS: Imm Gran Abs Auto 0.01 X10*3/uL (0.00-0.03); Imm Gran Pct Auto 0.3 % (0.0-0.4); PLT CLUMP 1; SCAN SMEAR FLAG 1
[2021-10-18 05:57] LABS: Hematocrit 35.8 % (42.0-52.0); Hemoglobin 11.7 g/dl (14.0-18.0); Lymphocytes Absolute Auto 0.3 X10*3/uL (1.2-4.9); Lymphocytes Percent Auto 9.6 % (20-40); Mean Corpuscular HGB Conc 32.7 g/dl (31.0-36.0); Mean Corpuscular Hemoglobin 29.4 pg (27.0-33.0); Mean Corpuscular Volume 89.9 fL (80.0-98.0); Monocytes Absolute Auto 0.1 X10*3/uL (0.1-1.2); Monocytes Percent Auto 3.2 % (2-11); Neutrophils Percent Auto 86.9 % (45-73); Red Blood Count 3.98 X10*6/uL (4.60-5.80); Red Cell Distribution Width 14.4 % (11.0-16.0)
[2021-10-18 06:14] LABS: MANUAL DIFF FLAG NO; Platelet Count 59 X10*3/uL (160-400)
--- NOTE | 2021-10-18 06:29 | PC.NURSE ---
Continued to notify CASSANDRA Lanier of pt's bradycadia. Lactated Ringers 500 ml bolus complete. Heart rate continues 50's Sinus Eze. He discussed this with Dr Stacy. 12 lead EKG done and reviewed by both of them. No changes at this time. Troponin drawn and pending. U/O is good.
[2021-10-18 06:43] LABS: Alanine Aminotransferase 48 U/L (0-40); Albumin Level 2.9 g/dL (3.5-5.0); Alkaline Phosphatase 53 U/L (39-117); Anion Gap 11 (12-20); Aspartate Amino Transferase 235 U/L (5-37); Bilirubin Total 0.8 mg/dL (0.0-1.0); Blood Urea Nitrogen 11 mg/dL (9-16); Calcium 8.6 mg/dL (8.4-10.2); Carbon Dioxide 23 mmol/L (22-29); Chloride 107 mmol/L (96-108); Creatinine Clr Calc Pharmacy 85.4; Estimated Glomerular Filt Rate > 60; Glucose Random 106 mg/dL (60-115); Potassium 3.3 mmol/L (3.3-5.1); Sodium 138 mmol/L (135-145); Total Protein 4.6 g/dL (6.5-8.0)
[2021-10-18 07:14] LABS: Troponin-I High Sensitivity 159.1 ng/L (<3.5-35.0)
[2021-10-18 08:00] LABS: White Blood Count 3.5 X10*3/uL (4.8-10.8)
[2021-10-18] MEDS: 0.9 % Sodium Chloride Flush 3 ML SYRINGE IVFLUSH ×2 (09:25→14:13)
[2021-10-18] MEDS: dexAMETHasone sod phosphate 4 MG/ML VIAL 6 MG IVPUSH (09:39)
[2021-10-18] MEDS: Potassium Chloride Packet 20 MEQ PACKET PO (09:39)
[2021-10-18] MEDS: fentaNYL citrate/NS 1,000 MCG/100 ML PLAST..BAG 2.5 MCG IVCONT (09:43)
--- NOTE | 2021-10-18 10:14 | P.CDIC_ITS ---
CDI Concurrent Query Documentation Clarification: PHYSICIAN'S DOCUMENTATION REQUEST Date of Query: 10/18/21 1015 Patient Name: Thien Avalos Admit Date: 10/16/21 Dear Doctor, A review of the medical record indicates additional documentation may be needed. Please review below and update the documentation accordingly. Risk Factors/Clinical Indicators/Treatments Nutrition notes 10/17 - moderately malnourished with BMI 16.1 mildly depleted subcutaneous fat and muscle mass. Reported poor PO intake. Thin, extensive muscle wasting. If possible, please provide an associated diagnosis related to the abnormal BMI, such as: For a BMI <= 19: Malnourished, mild, moderate etc. * Underweight * Weight loss * Cachexia * Anorexia Or: * BMI is not significant * Other (please specify) * Unable to determine Use of terms such as suspected, likely, concern for, or probable (associated with a specific diagnosis that is being evaluated, monitored, or treated as if it exists) are acceptable and can be coded in the inpatient setting, when documented at the time of discharge. Thank you, Gisel Guillen [facility], CDIS Extension: [phone] Please use your independent medical judgment in providing your response. THIS QUERY IS PART OF THE PERMANENT MEDICAL RECORD Provider Response: Moderate Protein-Calorie Malnutrition Other Diagnosis: agree that patient is moderately malnourished
--- NOTE | 2021-10-18 10:27 | MHC.CLN ---
F/U PT REMAINS INTUBATED AND SEDATED PT STARTED ON TF JEVITY AT MAX GOAL 50ML/HR WITH 120ML Q 4HRS RECOMMEND ADDING PROSOURCE X1 PER DAY TO INCREASE PROTEIN RECOMMEND TO CONTINUE JEVITY 1.0 AT MAX GOAL RATE 50ML/HR WITH 120CC FREE WATER FLUSHES Q 8HRS AND 30ML PROSOURCE Q DAY TO PROVIDE 1332KCALS (1584KCALS WITH SEDATION; 33.6KCALS/KG BASED ON ABW), 68G PROTEIN (1.5G/KG), 1362ML TOTAL WATER FROM FORMULA AND FLUSHES (30ML/KG BASED ON ABW) START FORMULA AT 20ML/HR AND INCREASE BY 10ML Q 4 HRS UNTIL MAX GOAL IS ACHIEVED MONITOR TOLERANCE, RESIDUALS AND LYTES PT AT RISK FOR REFEEDING; CHECK MG, PHOS AND K+ CLOSELY
--- NOTE | 2021-10-18 13:41 | PM.CCPN ---
Subjective Subjective Date of Service: 10/18/21 Interval History: 61-year-old male fairly cachectic looking with myotonic muscular dystrophy hypertension who presented with COVID-19 pneumonitis and acute hypercarbic and hypoxemic respiratory failure and intubated and is stable post intubation and wean his FiO2 down to 30% and he remains on his antiviral therapy and no clinical further GI bleeding there was a question of aspiration because of the presence of blood in the pharynx and remains now in sinus bradycardia with rates in the 45-55 range with very prominent but nonprogressive T-waves with prolonged QT interval and remains on propofol for his sedation never developed acute kidney injury despite the rhabdomyolysis which is resolving by the numbers and off the propofol today he still had a persistent delirium no regaining cognitive function so he was again recent dated and try again in the morning Critical Care Time (minutes): 45 Physical Exam Vital Signs: Vital Signs: Last Vital Signs Temp 97.8 F 10/18/21 12:00 Pulse 50 10/18/21 13:00 Resp 18 10/18/21 13:00 BP 175/76 H 10/18/21 13:00 Pulse Ox 100 10/18/21 13:00 BMI result Body Mass Index 16.1 moves all 4 extremities awake but no advent of cognitive function bedside echo preserve wall motion unchanged from yesterday nonprogressive EKG significantly hypertensive no accessory muscle or diaphragm effort abdomen benign no organomegaly Objective Data Labs CBC & Chem 7: 10/18/21 05:30 10/18/21 05:30 Labs: Laboratory Results - last 24 hr 10/17/21 10/17/21 10/17/21 16:15 16:15 16:15 WBC 4.1 L RBC 3.77 L Hgb 11.5 L Hct 34.6 L MCV 91.8 MCH 30.5 MCHC 33.2 RDW 14.5 Plt Count 60 L MPV 9.9 Immature Gran % (Auto) 0.2 Neut % (Auto) 87.2 H Lymph % (Auto) 9.9 L Lucas % (Auto) 2.7 Eos % (Auto) 0.0 Baso % (Auto) 0.0 Lymph # (Auto) 0.4 L Lucas # (Auto) 0.1 Eos # (Auto) 0.0 Baso # (Auto) 0.0 Abs Immat Gran (auto) 0.01 Absolute Neuts (auto) 3.5 Absolute Nucleated RBC 0.000 Nucleated RBC % (auto) 0.0 Smear Tech's Comments VERIFIED VBG pH VBG pCO2 VBG pO2 VBG HCO3 VBG O2 Saturation VBG Base Excess Sodium 141 Potassium 3.2 L Chloride 110 H Carbon Dioxide 24 Anion Gap 10 L BUN 8 L Creatinine 0.58 Estim Creat Clear Calc 86.8 Estimated GFR > 60 Random Glucose 76 Calcium 8.4 Total Bilirubin AST ALT Alkaline Phosphatase Troponin I High Sens 506.2 H* D Total Protein Albumin 10/18/21 10/18/21 10/18/21 05:26 05:30 05:30 WBC 3.5 L RBC 3.98 L Hgb 11.7 L Hct 35.8 L MCV 89.9 MCH 29.4 MCHC 32.7 RDW 14.4 Plt Count 59 L MPV 10.0 Immature Gran % (Auto) 0.3 Neut % (Auto) 86.9 H Lymph % (Auto) 9.6 L Lucas % (Auto) 3.2 Eos % (Auto) 0.0 Baso % (Auto) 0.0 Lymph # (Auto) 0.3 L Lucas # (Auto) 0.1 Eos # (Auto) 0.0 Baso # (Auto) 0.0 Abs Immat Gran (auto) 0.01 Absolute Neuts (auto) 3.0 Absolute Nucleated RBC 0.000 Nucleated RBC % (auto) 0.0 Smear Tech's Comments VBG pH 7.51 H VBG pCO2 25 VBG pO2 43 VBG HCO3 20 L VBG O2 Saturation 71.0 VBG Base Excess -1.2 Sodium 138 Potassium 3.3 Chloride 107 Carbon Dioxide 23 Anion Gap 11 L BUN 11 Creatinine 0.59 Estim Creat Clear Calc 85.4 Estimated GFR > 60 Random Glucose 106 D Calcium 8.6 Total Bilirubin 0.8 AST 235 H ALT 48 H Alkaline Phosphatase 53 Troponin I High Sens Total Protein 4.6 L Albumin 2.9 L D 10/18/21 05:30 WBC RBC Hgb Hct MCV MCH MCHC RDW Plt Count MPV Immature Gran % (Auto) Neut % (Auto) Lymph % (Auto) Lucas % (Auto) Eos % (Auto) Baso % (Auto) Lymph # (Auto) Lucas # (Auto) Eos # (Auto) Baso # (Auto) Abs Immat Gran (auto) Absolute Neuts (auto) Absolute Nucleated RBC Nucleated RBC % (auto) Smear Tech's Comments VBG pH VBG pCO2 VBG pO2 VBG HCO3 VBG O2 Saturation VBG Base Excess Sodium Potassium Chloride Carbon Dioxide Anion Gap BUN Creatinine Estim Creat Clear Calc Estimated GFR Random Glucose Calcium Total Bilirubin AST ALT Alkaline Phosphatase Troponin I High Sens 159.1 H* D Total Protein Albumin Progress Note: A&P Assessment and plan (1) Acute hypoxemic respiratory failure: Status: Acute (2) Short QT interval on electrocardiogram: Status: Acute (3) Rectal bleeding: Status: Acute (4) COVID-19: Status: Acute (5) Rhabdomyolysis: Status: Acute (6) Elevated troponin: Status: Acute Assessment and Plan: so we will recent date because of his agitation and keep him on the FiO2 of 30% and again try the sedation holiday in the morning medications will remain the same and he is on tube feedings Quality Stroke Does the patient have a stroke diagnosis?: No VTE Prior VTE?: No VTE Risk Level:: Medical - moderate - high VTE Device Contraindication: N/A - Device Ordered VTE Drug Contraindication: N/A - Med Ordered
[2021-10-18] MEDS: propofoL 1,000 MG/100 ML VIAL 5.44 MG IVCONT (14:03)
--- NOTE | 2021-10-18 16:30 | ECG_ITS ---
Test Reason : bradycardia Blood Pressure : / mmHG Vent. Rate : 096 BPM Atrial Rate : 096 BPM P-R Int : 238 ms QRS Dur : 084 ms QT Int : 370 ms P-R-T Axes : 000 053 091 degrees QTc Int : 467 ms Poor data quality Sinus rhythm with 1st degree A-V block Minimal voltage criteria for LVH, may be normal variant ( [place] product ) Anterior infarct , age undetermined Abnormal ECG When compared to the previous EKG of Poor R wave progression present Referred By: Anahi Stacy Electronically Signed By:Kvng Pfeiffer
[2021-10-19] VITALS (19 sets, daily range): BP systolic 90–175; BP diastolic 56–134; PULSE 42–108; RESP 10–98; TEMP 34.9–36.7; O2SAT 91–100
[2021-10-19] MEDS: 0.9 % Sodium Chloride Flush 3 ML SYRINGE IVFLUSH ×4 (00:37→21:11)
[2021-10-19] MEDS: propofoL 1,000 MG/100 ML VIAL 8.17 MG IVCONT (03:32)
[2021-10-19] MEDS: Pantoprazole Sodium 80 MG in 0.9 % Sodium Chloride 80 ML 10 MG IV (03:34)
[2021-10-19 05:20] LABS: VBG Base Excess 0.1 mmol/L; VBG HCO3 21 mmol/L (22-26); VBG pCO2 27 mmHg; VBG pH 7.51 (7.32-7.43); VBG pO2 41 mmHg
[2021-10-19 06:00] LABS: Hemoglobin 12.3 g/dl (14.0-18.0); Imm Gran Abs Auto 0.01 X10*3/uL (0.00-0.03); Imm Gran Pct Auto 0.3 % (0.0-0.4); Lymphocytes Absolute Auto 0.3 X10*3/uL (1.2-4.9); MANUAL DIFF FLAG SCAN; Monocytes Absolute Auto 0.2 X10*3/uL (0.1-1.2); PLT CLUMP 1; SCAN SMEAR FLAG 1
[2021-10-19 06:02] LABS: Lymphocytes Percent Auto 9.3 % (20-40); Mean Corpuscular HGB Conc 34.2 g/dl (31.0-36.0); Mean Corpuscular Hemoglobin 30.2 pg (27.0-33.0); Mean Corpuscular Volume 88.5 fL (80.0-98.0); Mean Platelet Volume 10.5 fL (9.4-12.4); Monocytes Percent Auto 4.8 % (2-11); Neutrophils Absolute Auto 3.1 x10*3/uL (2.0-8.3); Neutrophils Percent Auto 85.6 % (45-73); Red Blood Count 4.07 X10*6/uL (4.60-5.80); Red Cell Distribution Width 14.2 % (11.0-16.0)
[2021-10-19 06:15] LABS: Alanine Aminotransferase 45 U/L (0-40); Albumin Level 2.8 g/dL (3.5-5.0); Alkaline Phosphatase 54 U/L (39-117); Anion Gap 9 (12-20); Aspartate Amino Transferase 146 U/L (5-37); Bilirubin Total 0.6 mg/dL (0.0-1.0); Blood Urea Nitrogen 17 mg/dL (9-16); Calcium 8.6 mg/dL (8.4-10.2); Carbon Dioxide 24 mmol/L (22-29); Chloride 110 mmol/L (96-108); Creatinine Clr Calc Pharmacy 86.8; Estimated Glomerular Filt Rate > 60; Glucose Random 149 mg/dL (60-115); Potassium 3.2 mmol/L (3.3-5.1); Sodium 140 mmol/L (135-145); Total Protein 4.4 g/dL (6.5-8.0)
[2021-10-19 06:18] LABS: Venous Blood Gas Refer to POC result
[2021-10-19 06:26] LABS: Platelet Count 71 X10*3/uL (160-400); White Blood Count 3.6 X10*3/uL (4.8-10.8)
[2021-10-19 06:27] LABS: SLIDE REVIEW VERIFIED
[2021-10-19 06:57] LABS: Magnesium 2.2 mg/dL (1.6-2.6)
[2021-10-19] MEDS: dexAMETHasone sod phosphate 4 MG/ML VIAL 6 MG IVPUSH (07:04)
[2021-10-19] MEDS: Potassium Chloride Packet 20 MEQ PACKET 40 MEQ PO (07:05)
--- NOTE | 2021-10-19 11:39 | P.PNCC_ITS ---
Subjective Subjective Date of Service: 10/19/21 Interval History: is 61-year-old male rather asthenic, with background history of myotonic muscular dystrophy who came in because of acute hypoxemic respiratory failure from COVID-19 pneumonitis and around the time he was having a what appeared to be some GI bleeding he became precipitously hypoxic and with which in cephalo pathic and required urgent intubation he also adeno has an EKG which did not change did not evolve but had very prominent T-wave a vector in but again did not evolve and there was a prolonged QT associated with it and the only drug to affect was propofol and down here he remained intubated was placed on antiviral medication and bedside echo documented that he had preserved left ventricular function with never developed a segmental wall motion abnormality but did have a troponin bump to 500 and then that receded so whether not it was an indication of a degree of subendocardial ischemia or nonspecific issue with because he did have rhabdomyolysis when originally found he was on the floor he was weak he fell to the floor was unable to get up at did have rhabdomyolysis but never affected his renal function and adjust the numbers just resolved so I do know if the troponin is part of this process nonspecifically over represented a cardiac issue but he did continue to do well on ventilator support and was quickly wean to an FiO2 of 30% this minutes ventilatory requirements the node but gradually reduced and this persistent degree of of profound bradycardia which was a sinus mechanism rates of 40-45 all of a sudden just started to resolve he behaved almost like he had a cholinergic toxidrome but he is not very forthcoming in his speech and we have no list of home medications of any today on sedation holiday he woke up with excellent cognitive function and on pressure support wean he maintain excellent tidal volumes and he was able to double vital capacity and we therefore were able to extubate him successfully and he is just on nasal cannula right now and will observe for period of time and if stable I will transfer to the floor Critical Care Time (minutes): 45 Physical Exam Vital Signs: Vital Signs: Last Vital Signs Temp 96.9 F 10/19/21 08:00 Pulse 85 10/19/21 10:00 Resp 10 L 10/19/21 10:00 BP 156/79 H 10/19/21 10:00 Pulse Ox 98 10/19/21 10:00 BMI result Body Mass Index 16.1 with good cognitive function and nonfocal neurologically chest x-ray clear no evidence of infiltrate bedside echo shows preserved global wall motion of his left ventricle and a sinus bradycardia has resolved along with which the QT prolongation also has resolved Objective Data Labs CBC & Chem 7: 10/19/21 05:14 10/19/21 05:14 Labs: Laboratory Results - last 24 hr 10/19/21 10/19/21 10/19/21 05:13 05:14 05:14 WBC 3.6 L RBC 4.07 L Hgb 12.3 L Hct 36.0 L MCV 88.5 MCH 30.2 MCHC 34.2 RDW 14.2 Plt Count 71 L MPV 10.5 Immature Gran % (Auto) 0.3 Neut % (Auto) 85.6 H Lymph % (Auto) 9.3 L [place] % (Auto) 4.8 Eos % (Auto) 0.0 Baso % (Auto) 0.0 Lymph # (Auto) 0.3 L [place] # (Auto) 0.2 Eos # (Auto) 0.0 Baso # (Auto) 0.0 Abs Immat Gran (auto) 0.01 Absolute Neuts (auto) 3.1 Absolute Nucleated RBC 0.000 Nucleated RBC % (auto) 0.0 Smear Tech's Comments VERIFIED VBG pH 7.51 H VBG pCO2 27 VBG pO2 41 VBG HCO3 21 L VBG O2 Saturation 65.0 VBG Base Excess 0.1 Sodium 140 Potassium 3.2 L Chloride 110 H Carbon Dioxide 24 Anion Gap 9 L BUN 17 H D Creatinine 0.58 Estim Creat Clear Calc 86.8 Estimated GFR > 60 Random Glucose 149 H D Calcium 8.6 Magnesium 2.2 Total Bilirubin 0.6 AST 146 H ALT 45 H Alkaline Phosphatase 54 Total Protein 4.4 L Albumin 2.8 L Progress Note: A&P Assessment and plan (1) Acute hypoxemic respiratory failure: Status: Acute (2) Rectal bleeding: Status: Acute (3) COVID-19: Status: Acute (4) Rhabdomyolysis: Status: Acute (5) Elevated troponin: Status: Acute (6) Long Q-T syndrome: Status: Acute Assessment and Plan: at this point he is ready for transfer back up to the floor on nasal oxygen and initiate physical therapy and do a swallow evaluation rhabdomyolysis has resolved without any evidence of renal insufficiency Quality Stroke Does the patient have a stroke diagnosis?: No VTE Prior VTE?: No VTE Risk Level:: Medical - moderate - high VTE Device Contraindication: N/A - Device Ordered VTE Drug Contraindication: N/A - Med Ordered
--- NOTE | 2021-10-19 13:00 | PC.NURSE ---
Around 08:00 sedation vacation from Propofol initiated. Patient placed on PS 18/5 30% fio2 by RT. O2 sats remained around 98%, min vol 9, tidal vol 625, HR 70s, BP 164/77. Tolerating well. Wakeful and able to follow commands. Around 10:00 patient fully alert, able to follow commands, making purposeful movement with all extremities, and nodding appropriately to yes/no questions. RT at bedside and patient extubated around 10:15 per MD order. Patient tolerated extubation to 2L NC well. Patient able to maintain airway and cough. Speech/swallowing and PT consults placed. HOB >30% for aspiration precautions. Frequent oral care and suctioning given Q2H and PRN. Plan to transfer to [facility].
[2021-10-19] MEDS: Pantoprazole Sodium 40 MG/10 ML VIAL IVPUSH (16:10)
[2021-10-20] VITALS (14 sets, daily range): BP systolic 118–163; BP diastolic 68–84; PULSE 82–988; RESP 18–36; TEMP 28.8–37.1; O2SAT 95–100
--- NOTE | 2021-10-20 00:04 | P.CONCC_ITS ---
Documented by User: Florinda Chawla PA-C 10/20/21 03:15 History of Present Illness Data of Consult Service Date: 10/20/21 Requesting physician: Sandra Mendez Primary Care Provider: None Physician HPI Reason for consult: sudden hypoxemia patient is a 61-year-old male with myotonic muscular dystrophy who was admitted to this hospital for acute hypoxemic respiratory failure secondary to COVID 19 pneumonitis, he also had a GI bleed and was found to be ence phalopathic. Four days ago, he was intubated sedated and has been in the ICU, he was extubated this morning and discharged to the floor on 2 L nasal cannula. I was called by the respiratory therapist because his nurse found him and respiratory distress, they put him on BiPAP at 100%, and his oxygenation went up to 96%, RR 32, HR 96, he was still in some respiratory distress and question of being altered. physical exam revealed supraclavicular retractions, pt not oriented to place but able to answer questions, diminished lung sounds, patients lungs sounded very tight; I recommended a VBG, chest x-ray, give 50mg Fentanyl and a 1 hour long albuterol treatment. Pt likely needs regular duoneb tx's with albuterol tx prn and bipap overnight. Review of Systems Review of Systems: Yes all other systems are reviewed and are negative [facility] Past Medical History Medical History (Updated 10/23/21 @ 13:47 by Clyde Rincon MD) Hypertension Myotonic muscular dystrophy Tobacco abuse Social History Social History Household Members: None Housing: Apartment Do you presently have visiting nurse or other home services: Yes Patient Tobacco Use Status: Current everyday Tobacco user Tobacco use type: Cigarette Cigarette Packs Per Day: 20 Cigarettes Per Day: 400.0 service: No Current occupational status: disabled Meds Allergies Allergy/AdvReac Type Severity Reaction Status Date / Time ceftriaxone [From ROCEPHIN] Allergy Intermediate FACIAL Unverified 06/21/20 14:43 HIVES Active Medications: Current Medications Acetaminophen (Acetaminophen 325 Mg Tablet) 650 mg PO Q6H PRN PRN Reason: Pain, Mild (Pain Scale 1-3) Last Admin: 10/16/21 23:26 Dose: 650 mg Documented by: Albuterol Sulfate (Albuterol Sulfate (0.083%) 2.5 Mg/3 Ml Vial.Neb) 10 mg INHALE ONCE ONE Stop: 10/20/21 00:01 Baricitinib (Baricitinib 2 Mg Tablet) 4 mg PO Q24H [facility] Stop: 10/30/21 17:01 Last Admin: 10/19/21 16:18 Dose: Not Given Documented by: Dexamethasone Sodium Phosphate (Dexamethasone Sod Phosphate 4 Mg/Ml Vial) 6 mg IVPUSH DAILY [facility] Last Admin: 10/19/21 07:04 Dose: 6 mg Documented by: Fentanyl (Fentanyl Citrate/Pf 100 Mcg/2 Ml Vial) 50 mcg IVPUSH ONCE ONE; Protocol Stop: 10/20/21 00:01 Pantoprazole Sodium (Pantoprazole Sodium 40 Mg/10 Ml Vial) 40 mg IVPUSH BID@0630,1630 [facility] Last Admin: 10/19/21 16:10 Dose: 40 mg Documented by: Pharmacy Consult (Consult Rx Perform Med Rec) 1 each MISCELLANE ONCE PRN PRN Reason: Consult order Sodium Chloride (0.9 % Sodium Chloride Flush 3 Ml Syringe) 3 ml IVFLUSH QSHIFT [facility] Last Admin: 10/19/21 21:11 Dose: 3 ml Documented by: Home Medications Medication Instructions Recorded Confirmed Last Taken Type No Known Home Meds 10/16/21 10/16/21 Unknown History Physical Exam Vital Signs: Vital Signs: Last Vital Signs Temp 97 F 10/19/21 20:00 Pulse 91 10/19/21 20:00 Resp 16 10/19/21 20:00 BP 90/68 10/19/21 20:00 Pulse Ox 91 L 10/19/21 20:00 BMI result Body Mass Index 16.1 Const: General: cooperative and acute distress mild and respiratory Nutritional Appearance: cachectic Orientation/consciousness: oriented to person, No oriented to place and oriented to time HENMT: Head: Yes normal to inspection, Yes No palpable skull fracture present, Yes normocephalic and Yes atraumatic Face and sinus: Yes normal facial exam Eyes: General: appearance normal, both eyes and all related structures Pupils: Equal, round and reactive pupils present EOM: EOMs intact bilaterally Neck: Neck: Yes normal visual inspection, Yes full ROM and Yes trachea midline Resp: Effort & Inspection: retractions supraclavicular and tachypneic Auscultation: diminished lung sounds diffuse Cardio: Rate: regular rate Rhythm: regular rhythm Heart sounds: normal S1 and S2 Skin: General skin exam: no rashes or lesions noted Neuro: General: oriented to person, No oriented to place and oriented to time Cranial nerves: Yes Equal, round and reactive pupils present Extrem: General: Yes normal to inspection Results Labs CBC & Chem 7: 10/25/21 05:27 10/25/21 05:27 Labs: Short CBC 10/19/21 Range/Units 05:14 WBC 3.6 L (4.8-10.8) X10*3/uL Hgb 12.3 L (14.0-18.0) g/dl Hct 36.0 L (42.0-52.0) % Plt Count 71 L (160-400) X10*3/uL BMP 10/19/21 05:14 Sodium 140 Potassium 3.2 L Chloride 110 H Carbon Dioxide 24 BUN 17 H D Creatinine 0.58 Calcium 8.6 Liver Function 10/19/21 Range/Units 05:14 Total Bilirubin 0.6 (0.0-1.0) mg/dL AST 146 H (5-37) U/L ALT 45 H (0-40) U/L Alkaline Phosphatase 54 (39-117) U/L Albumin 2.8 L (3.5-5.0) g/dL Assessment and Plan (1) Acute hypoxemic respiratory failure: Status: Acute (2) COVID-19: Status: Acute (3) Rhabdomyolysis: Status: Acute (4) Long Q-T syndrome: Status: Acute (5) Rectal bleeding: Status: Acute (6) Elevated troponin: Status: Acute
[2021-10-20 00:32] LABS: VBG Base Excess -3.5 mmol/L; VBG HCO3 22 mmol/L (22-26); VBG pCO2 41 mmHg; VBG pH 7.33 (7.32-7.43); VBG pO2 59 mmHg
[2021-10-20 00:38] LABS: Venous Blood Gas Refer to POC result
--- NOTE | 2021-10-20 00:47 | PC.NURSE ---
Pt noted to be satting in the 60's on 2L NC. Pt alert but not very responsive. Pt put on NRB and only satting 73%. RT at bedside and placed pt on Bipap. O2 saturation came up to 99% on bipap. PA and MD at bedside to eval. CXR, Duonebs and VBG's ordered. Awaiting results. Pt stable at this time - BP 151/74, HR 99, RR 23. Will continue to monitor and reassess.
[2021-10-20] MEDS: Albuterol Sulfate (0.083%) 2.5 MG/3 ML VIAL.NEB 10 MG INHALE (00:52)
[2021-10-20] MEDS: Pantoprazole Sodium 40 MG/10 ML VIAL IVPUSH ×2 (05:44→15:59)
[2021-10-20 07:17] LABS: Anion Gap 13 (12-20); Blood Urea Nitrogen 12 mg/dL (9-16); Calcium 9.2 mg/dL (8.4-10.2); Carbon Dioxide 24 mmol/L (22-29); Chloride 109 mmol/L (96-108); Creatinine Clr Calc Pharmacy 89.9; Estimated Glomerular Filt Rate > 60; Glucose Random 100 mg/dL (60-115); Potassium 3.2 mmol/L (3.3-5.1); Sodium 143 mmol/L (135-145)
[2021-10-20] MEDS: dexAMETHasone sod phosphate 4 MG/ML VIAL 6 MG IVPUSH (10:50)
[2021-10-20] MEDS: 0.9 % Sodium Chloride Flush 3 ML SYRINGE IVFLUSH (10:50)
[2021-10-20] MEDS: Potassium Chloride/H20 10 MEQ/100 ML PIGGYBACK 100 MEQ IV ×4 (10:53→16:02)
--- NOTE | 2021-10-20 11:28 | HO.PM.IMPN ---
Subjective Subjective Date of Service: 10/21/21 Interval History: f/u on respiratory failure, had multiple episodes of respiratory distress yesterday and had to be put on bipap and seem to be doing better today Review of Systems Gen: no fever Resp: no sob, no cough CV: no chest, no EDGAR, no leg edema GI: No n/v, no abd pain Neuro: No confusion Physical Exam Vital Signs: Vital Signs: Last Vital Signs Temp 84 F L 10/20/21 08:00 Pulse 84 10/20/21 08:00 Resp 18 10/20/21 08:00 BP 163/72 H 10/20/21 08:00 Pulse Ox 99 10/20/21 08:00 BMI result Body Mass Index 16.1 General: AO X 3, no acute distress Resp: CTA bilateral CVS: S1,S2,RRR GI: +BS, NT, no distention Skin: No rash Neuro: motor grossly intact Psych: appropriate affect Objective Data Active Medications Acetaminophen (Acetaminophen 325 Mg Tablet) 650 mg PO Q6H PRN PRN Reason: Pain, Mild (Pain Scale 1-3) Last Admin: 10/16/21 23:26 Dose: 650 mg Documented by: VIRGIE Baricitinib (Baricitinib 2 Mg Tablet) 4 mg PO Q24H [facility] Stop: 10/30/21 17:01 Last Admin: 10/19/21 16:18 Dose: Not Given Documented by: THONG Non-Admin Reason: NPO Dexamethasone Sodium Phosphate (Dexamethasone Sod Phosphate 4 Mg/Ml Vial) 6 mg IVPUSH DAILY [facility] Last Admin: 10/20/21 10:50 Dose: 6 mg Documented by: YADY Pantoprazole Sodium (Pantoprazole Sodium 40 Mg/10 Ml Vial) 40 mg IVPUSH BID@5091,3180 [facility] Last Admin: 10/20/21 05:44 Dose: 40 mg Documented by: GERMÁN Pharmacy Consult (Consult Rx Perform Med Rec) 1 each MISCELLANE ONCE PRN PRN Reason: Consult order Sodium Chloride (0.9 % Sodium Chloride Flush 3 Ml Syringe) 3 ml IVFLUSH QSHIFT [facility] Last Admin: 10/20/21 10:50 Dose: 3 ml Documented by: YADY Labs CBC & Chem 7: 10/20/21 06:00 10/20/21 06:01 Labs: Laboratory Results - last 24 hr 10/20/21 10/20/21 00:26 06:01 VBG pH 7.33 VBG pCO2 41 VBG pO2 59 VBG HCO3 22 VBG O2 Saturation 84.0 VBG Base Excess -3.5 Anion Gap 13 Estim Creat Clear Calc 89.9 Estimated GFR > 60 Random Glucose 100 Calcium 9.2 D Assessment and Plan (1) Acute hypoxemic respiratory failure: Status: Acute (2) COVID-19: Status: Acute Assessment and Plan: ? 61yo M with myotonic muscular dystrophy presenting after a mechanical fall and found to have rhabdomyolysis and incidental Covid-19 infection, hedecompensated and was intubated in ICU for 2 to 3 days # rhabdomyolysis, CK 12k on 10/17, recheck 10/20 2k # Covid-19 infection--s/p intubation, extubated and now has been relying on BiPAP -continue Dexameth, Baricitinib.. Wean off BiPAP #GIB--self resolution, no intervention was done, # troponin elevation - likely due to cross-reactivity with skeletal muscle but recheck at 3hr emelia; no EKG changes and no angina # transaminasemia - also likely due to rhabdomyolysis but recheck LFTs + screen for HBV/HCV # fall - PT consult # myotonic MD - PERSONNEL PSYCHOLOGIST consult # tobacco abuse - NRT # VTE ppx Quality Stroke Does the patient have a stroke diagnosis?: No VTE Prior VTE?: No VTE Risk Level:: Medical - moderate - high VTE Device Contraindication: N/A - Device Ordered VTE Drug Contraindication: N/A - Med Ordered
[2021-10-20 12:32] LABS: Hematocrit 42.4 % (42.0-52.0); PLT CLUMP 1
[2021-10-20 12:34] LABS: Mean Corpuscular Hemoglobin 29.9 pg (27.0-33.0); Red Cell Distribution Width 14.3 % (11.0-16.0)
[2021-10-20 12:35] LABS: White Blood Count 8.7 X10*3/uL (4.8-10.8)
[2021-10-20 12:39] LABS: Hemoglobin 14.1 g/dl (14.0-18.0); Mean Corpuscular HGB Conc 33.3 g/dl (31.0-36.0); Mean Platelet Volume 9.9 fL (9.4-12.4); Platelet Count 111 X10*3/uL (160-400); Red Blood Count 4.71 X10*6/uL (4.60-5.80)
--- NOTE | 2021-10-20 13:47 | PM.EVENT ---
Event Note Date of Service: 10/20/21 Event Note: nurse called for Patient's low oxygen sats in 70s range. patient being treated for COVID pneumonia- was in ICU intubated and extubated yesterday and transferred to the floor - patient is on baricitinib and dexamethasone. Also on oxygen, nurse called for patient seems to be still desatting patient denies any chest pain or abdominal pain or nausea or vomiting he seems somewhat comfortable on BiPAP but seems like tiring blood gas this afternoon pH is maintain but pCO2 is seems to be increasing physical exam: Unchanged form today's provider note except alert oriented, somewhat tiring, on BiPAP chest: Air entry seems similar to this morning, no rales wheezing assessment and plan: Covid-19 infection--s/p intubation, doing well on nasal canula, wean off as tole -continue Dexameth, Baricitinib on bipap now VAPS ,Kepp tidal volume 300-350cc abg reviewed with icu-ph maintined called and d/w Dr. Stacy -currently recommended to patient to stay on the floor on BiPAP, will follow ICU recommendations. ICU recommended to continue above management- discussed with staff and respiratoryin detail, if patient clinically worsens repeat ABG again and call ICU back. ICU is aware.
[2021-10-20 16:02] LABS: ABG Base Excess -1.5 mmol/L; ABG HCO3 21 mmol/L (22-26); ABG pCO2 30 mmHg (32-45); ABG pH 7.44 (7.35-7.45); ABG pO2 254 mmHg (83-108)
--- NOTE | 2021-10-20 17:58 | PM.CCN ---
Critical Care Event Note Summary Date of Service: 10/20/21 Code activated: No Narrative: This case had a high probability of a clinically significant, sudden, or life threatening deterioration of this patient's condition which required my full and direct attention, intervention and personal management. Critical Care Time (minutes): 30 Comment: this 61-year-old gentleman with myotonic muscular dystrophy apparently started to develop difficulties due to pure hypoventilation and ultimately required going on to BiPAP and was placed on an AVAPS mode seeking tidal volume of 300-350 cc patient did well became comfortable and at a pCO2 of 30 with perfectly compensated pH in excellent PO2 and oxygen saturation doing well of will sign out to have him checked in the evening as well needs a pulmonary consult he might need permanent tracheostomy
[2021-10-21] VITALS (17 sets, daily range): BP systolic 139–177; BP diastolic 71–95; PULSE 69–120; RESP 16–33; TEMP 36.2–37.2; O2SAT 65–100
[2021-10-21] MEDS: Morphine Sulfate 4 MG/ML CARTRIDGE IVPUSH (00:17)
[2021-10-21 00:34] LABS: VBG Base Excess 1.2 mmol/L; VBG HCO3 24 mmol/L (22-26); VBG pCO2 34 mmHg; VBG pH 7.45 (7.32-7.43); VBG pO2 42 mmHg
[2021-10-21 00:39] LABS: Venous Blood Gas Refer to POC result
[2021-10-21] MEDS: Albuterol Sulfate (0.083%) 2.5 MG/3 ML VIAL.NEB 10 MG INHALE (00:41)
[2021-10-21 00:58] LABS: ABG Refer to POC result
[2021-10-21] MEDS: Pantoprazole Sodium 40 MG/10 ML VIAL IVPUSH ×2 (06:02→15:54)
[2021-10-21] MEDS: dexAMETHasone sod phosphate 4 MG/ML VIAL 6 MG IVPUSH (08:30)
[2021-10-21] MEDS: 0.9 % Sodium Chloride Flush 3 ML SYRINGE IVFLUSH ×3 (08:30→15:54)
--- NOTE | 2021-10-21 15:43 | MHC.CLN ---
Addendum entered by Lorenza Murguia RD 10/21/21 15:59: SEEN BY INDUSTRIAL ENGINEERING MANAGER 10/21 WITH RECOMMENDATION FOR PUREE DIET WITH HONEY THICK LIQUIDS. 1:1 FEEDING ASSISTANCE AND STRICT ASPIRATION PRECAUTIONS. Original Note: F/U PATIENT EXTUBATED 10/20 AND TF DISCONTINUED AT THAT TIME. ON BiPAP. ORDER FOR INDUSTRIAL ENGINEERING MANAGER TO SEE. NO DIET ORDER. FOLLOW FOR DIET ADVANCEMENT AND INTAKE.
--- NOTE | 2021-10-21 15:54 | MHC.SL.SWA ---
Speech Pathologist Impression: Risk of Aspiration Oralpharyngeal Dysphagia Risk of Aspiration Due to: History of Pneumonia Hx of Recent Extubation Dysphasia Diet Status: Downgrade Liquid Consistency and Strategies for Safe Swallow: Liquid Intake Recommendation: Honey Thick Liquid Intake Strategies: Small Sips No Straws Solid Food Consistency: Dietary Recommendations: Pureed (NDD1) Additional Modifications to Solid Foods: Recommend PUREED (NDD1) solids and HONEY THICK liquids, pills CRUSHED in PUREE. Patient requires 1:1 assistance feeding and strict aspiration precautions. ADMINISTRATIVE JOB TITLES will follow to monitor tolerance and re-assess for potential of upgrade. Oral Medication Intake: Crushed with Puree Compensatory Strategies and Precautions to be Taken for Safe Swallow: Sitting Upright (90 deg) No Straw Small Bites and Sips Rate of Ingestion Change Supervision While Eating and Drinking for Safe Swallow: Total Assistance Foods to Avoid: Swallowing Recommended Treatments: Compens. Strategy Educat. Recommendation for Speech: Inpatient Speech Therapy Career Education Teacher Clinican/Clinical Fellow: No Supervisory Statement: I have reviewed and agree with the student/clinical fellow's documentation: N/A Speech Language Pathologist: Darlin Carpenter M.A., CCC-ADMINISTRATIVE JOB TITLES
[2021-10-21 21:16] LABS: Glucose, Whole Blood 157 mg/dL (60-115)
[2021-10-21] MEDS: Morphine Sulfate 2 MG/ML CARTRIDGE 1 MG IVPUSH (21:20)
[2021-10-22] VITALS (15 sets, daily range): BP systolic 66–171; BP diastolic 36–89; PULSE 62–128; RESP 12–26; TEMP 34.4–37.5; O2SAT 86–100
[2021-10-22] MEDS: 0.9 % Sodium Chloride Flush 3 ML SYRINGE IVFLUSH ×3 (01:05→16:21)
[2021-10-22] MEDS: Pantoprazole Sodium 40 MG/10 ML VIAL IVPUSH ×2 (05:36→16:21)
[2021-10-22] MEDS: Morphine Sulfate 2 MG/ML CARTRIDGE 1 MG IVPUSH (06:28)
--- NOTE | 2021-10-22 09:24 | P.CDIC_ITS ---
CDI Concurrent Query Documentation Clarification: PHYSICIAN'S DOCUMENTATION REQUEST Date of Query: 10/22/21 0924 Patient Name: Thien Avalos Admit Date: 10/16/21 Dear Doctor, A review of the medical record indicates additional documentation may be needed. Please review below and update the documentation accordingly. Risk Factors/Clinical Indicators/Treatments ICU progress note 10/19 & 10/20 - patient found to be encephalopathic. Respiratory distress, hypoxic with question of being altered. ICU progress note 10/17 - patient found down, confused and pale. Based on the above, please further specify, in the Progress Notes, the known or suspected type of the documented encephalopathic: * Metabolic * Toxic * Toxic metabolic * Other * Unable to determine Use of terms such as suspected, likely, concern for, or probable (associated with a specific diagnosis that is being evaluated, monitored, or treated as if it exists) are acceptable and can be coded in the inpatient setting, when documented at the time of discharge. Thank you, Gisel Guillen [facility], CDIS Extension: [phone] Please use your independent medical judgment in providing your response. THIS QUERY IS PART OF THE PERMANENT MEDICAL RECORD Provider Response: Other Other Diagnosis: metabolic encephalopathy
[2021-10-22] MEDS: dexAMETHasone sod phosphate 4 MG/ML VIAL 6 MG IVPUSH (10:37)
--- NOTE | 2021-10-22 14:17 | P.PNIM_ITS ---
Subjective Subjective Date of Service: 10/22/21 Interval History: f/u on respiratory failure, he is becoming bipap dependending Review of Systems Gen: no fever Resp: no sob, no cough CV: no chest, no EDGAR, no leg edema GI: No n/v, no abd pain Neuro: No confusion Physical Exam Vital Signs: Vital Signs: Last Vital Signs Temp 98.7 F 10/22/21 07:36 Pulse 95 10/22/21 12:00 Resp 18 10/22/21 12:00 BP 128/59 L 10/22/21 12:00 Pulse Ox 96 10/22/21 12:00 BMI result Body Mass Index 16.1 Objective Data Active Medications Acetaminophen (Acetaminophen 325 Mg Tablet) 650 mg PO Q6H PRN PRN Reason: Pain, Mild (Pain Scale 1-3) Last Admin: 10/16/21 23:26 Dose: 650 mg Documented by: VIRGIE Baricitinib (Baricitinib 2 Mg Tablet) 4 mg PO Q24H [facility] Stop: 10/30/21 17:01 Last Admin: 10/21/21 15:54 Dose: Not Given Documented by: SARA Non-Admin Reason: NPO Dexamethasone Sodium Phosphate (Dexamethasone Sod Phosphate 4 Mg/Ml Vial) 6 mg IVPUSH DAILY [facility] Last Admin: 10/22/21 10:37 Dose: 6 mg Documented by: TARAS Morphine Sulfate (Morphine Sulfate 2 Mg/Ml Cartridge) 1 mg IVPUSH Q4H PRN; Protocol PRN Reason: pain/sob Last Admin: 10/22/21 06:28 Dose: 1 mg Documented by: CODIE Pantoprazole Sodium (Pantoprazole Sodium 40 Mg/10 Ml Vial) 40 mg IVPUSH BID@[id number] [facility] Last Admin: 10/22/21 05:36 Dose: 40 mg Documented by: CODIE Pharmacy Consult (Consult Rx Perform Med Rec) 1 each MISCELLANE ONCE PRN PRN Reason: Consult order Sodium Chloride (0.9 % Sodium Chloride Flush 3 Ml Syringe) 3 ml IVFLUSH QSHIFT [facility] Last Admin: 10/22/21 10:37 Dose: 3 ml Documented by: TARAS Labs CBC & Chem 7: 10/20/21 06:00 10/20/21 06:01 Labs: Laboratory Results - last 24 hr 10/21/21 21:07 POC Glucose 157 H Assessment and Plan (1) Acute hypoxemic respiratory failure: Status: Acute (2) COVID-19: Status: Acute Assessment and Plan: ? 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 Wean off BiPAP as walt -check Vital capacity Q4 #GIB--self resolution, no intervention was needed # troponin elevation - likely due to cross-reactivity with skeletal muscle but recheck at 3hr emelia; no EKG changes and no angina # transaminasemia - also likely due to rhabdomyolysis but recheck LFTs + screen for HBV/HCV # fall - PT consult # myotonic MD - INFORMATION TECHNOLOGY PROGRAM MANAGER consult # tobacco abuse - NRT # VTE ppx Quality Stroke Does the patient have a stroke diagnosis?: No VTE Prior VTE?: No VTE Risk Level:: Medical - moderate - high VTE Device Contraindication: N/A - Device Ordered VTE Drug Contraindication: N/A - Med Ordered
--- NOTE | 2021-10-22 17:01 | MHC.SLORD ---
Speech Language Pathology Order Status: UNCRATER attempted to see patient this evening for dysphagia treatment. Due to lethargy, not appropriate for PO trials. Will follow up tomorrow morning.
[2021-10-22] MEDS: Etomidate 20 MG/10 ML VIAL IVPUSH (17:40)
[2021-10-22] MEDS: Rocuronium Bromide 50 MG/5 ML VIAL IVPUSH (17:41)
[2021-10-22 18:27] LABS: Hematocrit 46.1 % (42.0-52.0); Hemoglobin 14.9 g/dl (14.0-18.0); Imm Gran Abs Auto 0.04 X10*3/uL (0.00-0.03); Imm Gran Pct Auto 0.8 % (0.0-0.4); Lymphocytes Absolute Auto 0.1 X10*3/uL (1.2-4.9); Lymphocytes Percent Auto 2.6 % (20-40); MANUAL DIFF FLAG SCAN; Mean Corpuscular HGB Conc 32.3 g/dl (31.0-36.0); Mean Corpuscular Hemoglobin 29.3 pg (27.0-33.0); Mean Corpuscular Volume 90.7 fL (80.0-98.0); Mean Platelet Volume 10.4 fL (9.4-12.4); Monocytes Absolute Auto 0.1 X10*3/uL (0.1-1.2); Monocytes Percent Auto 1.6 % (2-11); Neutrophils Absolute Auto 4.8 x10*3/uL (2.0-8.3); Platelet Count 154 X10*3/uL (160-400); Red Blood Count 5.08 X10*6/uL (4.60-5.80); Red Cell Distribution Width 13.8 % (11.0-16.0); SCAN SMEAR FLAG 1; White Blood Count 5.1 X10*3/uL (4.8-10.8)
[2021-10-22 18:28] LABS: Venous Blood Gas Refer to POC result
[2021-10-22 18:29] LABS: VBG Base Excess 1.6 mmol/L; VBG HCO3 27 mmol/L (22-26); VBG pCO2 48 mmHg; VBG pH 7.36 (7.32-7.43); VBG pO2 67 mmHg
[2021-10-22] MEDS: propofoL 1,000 MG/100 ML VIAL 5.44 MG IVCONT (18:30)
--- NOTE | 2021-10-22 18:36 | PM.CCN ---
Critical Care Event Note Summary Date of Service: 10/22/21 Code activated: No Narrative: 61 y/o male with underlying myotonic muscular dystrophy admitted on 10/17/2021 after a mechanical fall resulting in rhabdomyolysis and acute kidney injury further complicated by COVID-19 related acute hypoxic respiratory failure and recurrent aspiration with another episode of pulmonary aspiration tonight around 6p requiring intubation and transfer to the ICU. Started on empiric Unasyn. Critical Care Time (minutes): 0
[2021-10-22 18:44] LABS: Anion Gap 14 (12-20); Blood Urea Nitrogen 27 mg/dL (9-16); Calcium 9.8 mg/dL (8.4-10.2); Carbon Dioxide 31 mmol/L (22-29); Chloride 108 mmol/L (96-108); Creatinine Clr Calc Pharmacy 77.5; Estimated Glomerular Filt Rate > 60; Glucose Random 154 mg/dL (60-115); Magnesium 2.6 mg/dL (1.6-2.6); Phosphorus 2.6 mg/dL (2.7-4.5); Potassium 3.9 mmol/L (3.3-5.1); Sodium 149 mmol/L (135-145)
[2021-10-22 18:46] LABS: SLIDE REVIEW VERIFIED
--- NOTE | 2021-10-22 18:52 | PM.EVENT ---
Event Note Date of Service: 10/22/21 Event Note: While being given meds with apple sauce and few bites of food, he aspirated causing hypoxia that he could not recover from with O2 sat staying in 70s, no gag reflex and had to be intubated.
[2021-10-22] MEDS: Ampicillin Sodium/Sulbactam Na 3 GM in 0.9 % Sodium Chloride 100 ML IV ×2 (18:59→23:36)
[2021-10-22] MEDS: fentaNYL citrate/NS 1,000 MCG/100 ML PLAST..BAG 5 MCG IVCONT (19:30)
--- NOTE | 2021-10-22 19:44 | PC.NURSE ---
Pt given 2 spoonfuls of pudding with meds crushed. Tolerated pudding well, swallowed appropriately. Pt then fed 1:1 from dinner tray. Pt aspirated on puree thick solid when fed 2 bites of dinner. Pt desat to 80% on 7L hayes NC. Pt suctioned orally, coughing. Circumoral cyanosis - SWIMMING POOL SERVICEPERSON called. RT, ICU nurse, at bedside. Pt intubated size 7.5, 23 at lip. Pt transported to ICU with REMELT FURNACE EXPEDITER, RT. Nurse to nurse report given to ICU nurse.
[2021-10-22] MEDS: Cisatracurium Besylate 20 MG/10 ML VIAL 10 MG IVPUSH (19:52)
[2021-10-22 20:29] LABS: Glucose, Whole Blood 126 mg/dL (60-115)
[2021-10-22] MEDS: Albumin Human 25 % 100 ML IV (20:53)
--- NOTE | 2021-10-22 23:25 | MHC.PIE ---
Responded to BIZTALK DEVELOPER on IMC - covid +. Had prev been intubated in ICU earlier in admission. Patient found to be lethargic, Min cough & gag. O2sat's in 70's. Question of aspiration from dinner. Dr Harrison came to see patient and evaluate - decided to intubate. Medicated w/ etomidate & Ruben (see MAR) & Intubated at approx 1742 w/ 7.5 ETT @ 23cm. Transported on e to ICU by this RN & RT. Restraints started & levo started for low BP's - see DEC.
[2021-10-22] MEDS: propofoL 1,000 MG/100 ML VIAL 13.61 MG IVCONT (23:35)
[2021-10-22] MEDS: fentaNYL citrate/NS 1,000 MCG/100 ML PLAST..BAG 20 MCG IVCONT (23:36)
[2021-10-23] VITALS (30 sets, daily range): BP systolic 94–161; BP diastolic 47–74; PULSE 40–103; RESP 8–16; TEMP 34.6–37.6; O2SAT 96–100; BMI 16.1
[2021-10-23] MEDS: 0.9 % Sodium Chloride Flush 3 ML SYRINGE IVFLUSH ×4 (00:49→23:54)
[2021-10-23] MEDS: fentaNYL citrate/NS 1,000 MCG/100 ML PLAST..BAG 10 MCG IVCONT ×3 (04:24→23:55)
[2021-10-23] MEDS: propofoL 1,000 MG/100 ML VIAL 6.8 MG IVCONT ×2 (04:24→17:52)
[2021-10-23 05:32] LABS: VBG Base Excess 8.1 mmol/L; VBG HCO3 33 mmol/L (22-26); VBG pCO2 47 mmHg; VBG pH 7.45 (7.32-7.43); VBG pO2 43 mmHg
[2021-10-23 05:33] LABS: MANUAL DIFF FLAG NO
[2021-10-23 05:36] LABS: Venous Blood Gas Refer to POC result
[2021-10-23 05:44] LABS: Hematocrit 38.1 % (42.0-52.0); Hemoglobin 12.5 g/dl (14.0-18.0); Imm Gran Abs Auto 0.03 X10*3/uL (0.00-0.03); Imm Gran Pct Auto 0.5 % (0.0-0.4); Lymphocytes Absolute Auto 0.3 X10*3/uL (1.2-4.9); Lymphocytes Percent Auto 4.6 % (20-40); Mean Corpuscular HGB Conc 32.8 g/dl (31.0-36.0); Mean Corpuscular Hemoglobin 29.6 pg (27.0-33.0); Mean Corpuscular Volume 90.1 fL (80.0-98.0); Mean Platelet Volume 9.9 fL (9.4-12.4); Monocytes Absolute Auto 0.4 X10*3/uL (0.1-1.2); Monocytes Percent Auto 6.6 % (2-11); Neutrophils Absolute Auto 5.5 x10*3/uL (2.0-8.3); Neutrophils Percent Auto 88.3 % (45-73); Platelet Count 148 X10*3/uL (160-400); Red Blood Count 4.23 X10*6/uL (4.60-5.80); White Blood Count 6.2 X10*3/uL (4.8-10.8)
[2021-10-23 06:10] LABS: Alanine Aminotransferase 35 U/L (0-40); Albumin Level 3.6 g/dL (3.5-5.0); Alkaline Phosphatase 48 U/L (39-117); Anion Gap 14 (12-20); Aspartate Amino Transferase 27 U/L (5-37); Bilirubin Total 0.9 mg/dL (0.0-1.0); Blood Urea Nitrogen 36 mg/dL (9-16); Calcium 10.1 mg/dL (8.4-10.2); Carbon Dioxide 31 mmol/L (22-29); Chloride 108 mmol/L (96-108); Creatinine Clr Calc Pharmacy 75.2; Estimated Glomerular Filt Rate > 60; Glucose Random 139 mg/dL (60-115); Magnesium 2.7 mg/dL (1.6-2.6); Phosphorus 1.9 mg/dL (2.7-4.5); Potassium 3.4 mmol/L (3.3-5.1); Sodium 150 mmol/L (135-145); Total Protein 5.6 g/dL (6.5-8.0)
[2021-10-23] MEDS: dexAMETHasone sod phosphate 4 MG/ML VIAL 6 MG IVPUSH (07:35)
[2021-10-23] MEDS: Ampicillin Sodium/Sulbactam Na 3 GM in 0.9 % Sodium Chloride 100 ML IV ×4 (07:35→23:54)
--- NOTE | 2021-10-23 08:36 | P.CDIC_ITS ---
CDI Concurrent Query Documentation Clarification: PHYSICIAN'S DOCUMENTATION REQUEST Date of Query: 10/23/21 0837 Patient Name: Thien Avalos Admit Date: 10/16/21 Dear Doctor, A review of the medical record indicates additional documentation may be needed. Please review below and update the documentation accordingly. Risk Factors/Clinical Indicators/Treatments Nutrition Assessment notes 10/17 - patient is moderately malnourished with BMI 16.1 Mildly depleted subcutaneous fat and muscle mass. Reported poor PO intake. Currently intubated and sedated. ASPEN Criteria* Acute Illness Chronic Illness Clinical Characteristic Non-Severe (2 or more criteria present) Severe (2 or more criteria present) Non-Severe (2 or more criteria present) Severe (2 or more criteria present) Energy Intake <75% for >7 days <=50% for >=5 days <75% for >=1 month <=75% for >=1 month Weight Loss 1 week 1 ? 2% >2% N/A N/A 1 month 5% >5% 5% >5% 3 months 7.5 % >7.5% 7.5% >7.5% 6 months N/A N/A 10% >10% 1 year N/A N/A 20% >20% Body Fat Mild Moderate Mild Severe Muscle Mass Mild Moderate Mild Severe Fluid Accumulation Mild Moderate to Severe Mild Severe Reduced Multiplex Operator Strength N/A Measurably Reduced N/A Measurably Reduced *[facility] Hospitalist, 2016 If possible, please provide a correlates with indicators above:: Malnutrition Underweight Failure to thrive or other etiology * Mild * Moderate * Severe * Other (please specify) * Unable to determine Use of terms such as suspected, likely, concern for, or probable (associated with a specific diagnosis that is being evaluated, monitored, or treated as if it exists) are acceptable and can be coded in the inpatient setting, when documented at the time of discharge. Thank you, Gisel Guillen [facility], CDIS Extension: [phone] Please use your independent medical judgment in providing your response. THIS QUERY IS PART OF THE PERMANENT MEDICAL RECORD Provider Response: Other (Severe protein malnutrition) Other Diagnosis: Severe protein malnutrition
--- NOTE | 2021-10-23 10:59 | MHC.CLN ---
RE: CONSULT PT IS SEVERELY MALNOURISHED PT WITH MODERATELY DEPLETED SUBCUTANEOUS FAT AND MUSCLE MASS, BMI 16.1 AND REPORTED POOR PO INTAKE ROCK WOOL INSULATOR PT RE-INTUBATED AND SEDATED 10/22 RECOMMEND PROMOTE AT MAX GOAL RATE 50ML/HR WITH 240CC FREE WATER FLUSHES Q 8 HRS TO PROVIDE 1200KCALS (1380KCALS WITH SEDATION; 30.6KCALS/KG BASED ON ABW), 75G PROTEIN (1.6G/KG), 1727ML TOTAL WATER FROM FORMULA AND FLUSHES (38ML/KG BASED ON ABW) START FORMULA AT 20ML/HR AND INCREASE BY 10ML Q 4 HRS UNTIL MAX GOAL IS ACHIEVED MONITOR TOLERANCE, RESIDUALS AND LYTES PT WITH POTENTIAL RISK FOR RE-FEEDING; CHECK MG, PHOS AND K+ CLOSELY SEE ALSO CLINICAL NUTRITION ASSESSMENT
--- NOTE | 2021-10-23 13:32 | P.PNCC_ITS ---
Subjective Subjective Date of Service: 10/23/21 Interval History: 61-year-old gentleman with underlying history of on muscular dystrophy with multiple prior admissions intubations for aspiration pneumonia admitted on 10/16/2021 with dyspnea and hypoxemia secondary to a combination of COVID-19 and pulmonary aspiration further complicated by rhabdomyolysis requiring intubation and transferred to intensive care unit on 10/17/2021, extubated on 10/19/2021. Treated with antibiotics and dexamethasone with another aspiration episodes requiring intubation on 10/22/2021. No events overnight. Critical Care Time (minutes): 45 Physical Exam Vital Signs: Vital Signs: Last Vital Signs Temp 97.5 F 10/23/21 13:00 Pulse 53 10/23/21 13:00 Resp 4 L 10/23/21 13:00 BP 126/60 10/23/21 13:00 Pulse Ox 99 10/23/21 13:00 BMI result Body Mass Index 16.1 Const: General: no acute distress and other (Sedated on the vent) Nutritional Appearance: cachectic Eyes: Sclerae: sclerae normal EOM: EOMs intact bilaterally Neck: Neck: Yes no lymphadenopathy, Yes trachea midline and Yes supple Resp: Effort & Inspection: normal respiratory effort Auscultation: crackles (Right basilar) Cardio: Rate: bradycardic Rhythm: regular rhythm Heart sounds: no gallops, no murmurs and no rubs GI: Palpation (GI): Soft to palpation and Other GI palpation findings present ( Nontender) Auscultation: normal bowel sounds Extrem: General: Yes no pedal edema, No clubbing and No cyanosis Objective Data Labs CBC & Chem 7: 10/23/21 05:20 10/23/21 05:20 Labs: Laboratory Results - last 24 hr 10/22/21 10/22/21 10/22/21 17:31 18:18 18:18 WBC 5.1 RBC 5.08 Hgb 14.9 Hct 46.1 MCV 90.7 MCH 29.3 MCHC 32.3 RDW 13.8 Plt Count 154 L D MPV 10.4 Immature Gran % (Auto) 0.8 H Neut % (Auto) 95.0 H Lymph % (Auto) 2.6 L [place] % (Auto) 1.6 L Eos % (Auto) 0.0 Baso % (Auto) 0.0 Lymph # (Auto) 0.1 L [place] # (Auto) 0.1 Eos # (Auto) 0.0 Baso # (Auto) 0.0 Abs Immat Gran (auto) 0.04 H Absolute Neuts (auto) 4.8 Absolute Nucleated RBC 0.000 Nucleated RBC % (auto) 0.0 Smear Tech's Comments VERIFIED VBG pH VBG pCO2 VBG pO2 VBG HCO3 VBG O2 Saturation VBG Base Excess Sodium 149 H Potassium 3.9 D Chloride 108 Carbon Dioxide 31 H Anion Gap 14 BUN 27 H D Creatinine 0.65 Estim Creat Clear Calc 77.5 Estimated GFR > 60 POC Glucose 126 H Random Glucose 154 H D Calcium 9.8 D Phosphorus 2.6 L Magnesium 2.6 Total Bilirubin AST ALT Alkaline Phosphatase Total Protein Albumin 10/22/21 10/23/21 10/23/21 18:24 05:20 05:20 WBC 6.2 RBC 4.23 L Hgb 12.5 L Hct 38.1 L MCV 90.1 MCH 29.6 MCHC 32.8 RDW 14.0 Plt Count 148 L MPV 9.9 Immature Gran % (Auto) 0.5 H Neut % (Auto) 88.3 H Lymph % (Auto) 4.6 L [place] % (Auto) 6.6 Eos % (Auto) 0.0 Baso % (Auto) 0.0 Lymph # (Auto) 0.3 L [place] # (Auto) 0.4 Eos # (Auto) 0.0 Baso # (Auto) 0.0 Abs Immat Gran (auto) 0.03 Absolute Neuts (auto) 5.5 Absolute Nucleated RBC 0.000 Nucleated RBC % (auto) 0.0 Smear Tech's Comments VBG pH 7.36 VBG pCO2 48 VBG pO2 67 VBG HCO3 27 H VBG O2 Saturation 90.0 VBG Base Excess 1.6 Sodium 150 H Potassium 3.4 Chloride 108 Carbon Dioxide 31 H Anion Gap 14 BUN 36 H Creatinine 0.67 Estim Creat Clear Calc 75.2 Estimated GFR > 60 POC Glucose Random Glucose 139 H Calcium 10.1 Phosphorus 1.9 L Magnesium 2.7 H Total Bilirubin 0.9 AST 27 D ALT 35 Alkaline Phosphatase 48 Total Protein 5.6 L D Albumin 3.6 D 10/23/21 05:25 WBC RBC Hgb Hct MCV MCH MCHC RDW Plt Count MPV Immature Gran % (Auto) Neut % (Auto) Lymph % (Auto) [place] % (Auto) Eos % (Auto) Baso % (Auto) Lymph # (Auto) [place] # (Auto) Eos # (Auto) Baso # (Auto) Abs Immat Gran (auto) Absolute Neuts (auto) Absolute Nucleated RBC Nucleated RBC % (auto) Smear Tech's Comments VBG pH 7.45 H VBG pCO2 47 VBG pO2 43 VBG HCO3 33 H VBG O2 Saturation 72.0 VBG Base Excess 8.1 Sodium Potassium Chloride Carbon Dioxide Anion Gap BUN Creatinine Estim Creat Clear Calc Estimated GFR POC Glucose Random Glucose Calcium Phosphorus Magnesium Total Bilirubin AST ALT Alkaline Phosphatase Total Protein Albumin Progress Note: A&P Assessment and plan (1) Acute hypoxemic respiratory failure: Status: Acute (2) Myotonic muscular dystrophy: Status: Acute (3) Recurrent aspiration pneumonia: Status: Acute Assessment and Plan: Assessment: 61-year-old gentleman with underlying myotonic muscular dystrophy with multiple prior admissions aspiration pneumonia admitted with hypoxemia secondary to COVID-19 and recurrent aspiration pneumonia now requiring re- intubation Plan: Neuro: No acute issues. Cardiac: No acute issues. Pulmonary: Acute on chronic hypoxic respiratory failure secondary to COVID-19 and recurrent aspirations further complicated by underlying myotonic muscular dystrophy. Will discuss tracheostomy versus palliative care with healthcare proxy. Renal: No acute issues. Endo: No acute issues. GI: No acute issues. ID: Empirically covered for aspiration pneumonia versus pneumonitis. COVID-19, now on dexamethasone. Heme/Onc: No acute issues. Psych: No acute issues. Miscellaneous: No acute issues. Prophylaxis: Heparin, omeprazole Diet: Tube feeds Critical care time spent: 45 minutes Quality Stroke Does the patient have a stroke diagnosis?: No VTE Prior VTE?: No VTE Risk Level:: Medical - moderate - high VTE Device Contraindication: N/A - Device Ordered VTE Drug Contraindication: N/A - Med Ordered
--- NOTE | 2021-10-23 14:45 | MHC.CM.PN ---
Call placed to pt's long standing friend, Aristeo to update him on pt's status. Per Aristeo, pt has been on a self destructive path for years Aristeo states pt drank coffee, smoked, ate very little and neglected his health. He refused help of all kind Aristeo feels strongly that pt would not want to be dependent on anyone for care and would not want invasive life prolonging measures like intubation or trach / peg placement. Informed Aristeo that ICU MD may be calling him to discuss options including FASHION MARKETER vs peg/trach. CM to assist with d/c planning
[2021-10-23] MEDS: Chlorhexidine Gluc Oral Rinse 15 ML MOUTHWASH BUCCAL ×2 (15:18→20:19)
[2021-10-23] MEDS: Heparin Sodium,Porcine 5,000 UNIT/ML VIAL 5000 UNIT SUBCUT ×2 (15:18→20:19)
--- NOTE | 2021-10-23 15:26 | MHC.SLORD ---
Speech Language Pathology Order Status: Per RN note, yesterday patient tolerated pudding with crushed pills, then when fed 1:1 from dinner tray, aspirated on pudding- Desatting to 80% on nasal cannula. Patient was suctioned orally, coughing. Transferred to ICU and intubated on 10/22/21. Please re-refer if dysphagia evaluation is still indicated, at least 24-48 hours post-extubation.
[2021-10-24] VITALS (29 sets, daily range): BP systolic 88–142; BP diastolic 44–70; PULSE 56–76; RESP 3–16; TEMP 35–37.9; O2SAT 95–100
[2021-10-24] MEDS: propofoL 1,000 MG/100 ML VIAL 6.8 MG IVCONT ×2 (04:16→18:16)
[2021-10-24 05:37] LABS: MANUAL DIFF FLAG NO
[2021-10-24 05:39] LABS: VBG Base Excess 12.8 mmol/L; VBG HCO3 38 mmol/L (22-26); VBG pCO2 53 mmHg; VBG pH 7.46 (7.32-7.43); VBG pO2 54 mmHg
[2021-10-24 05:43] LABS: Venous Blood Gas Refer to POC result
[2021-10-24] MEDS: Heparin Sodium,Porcine 5,000 UNIT/ML VIAL 5000 UNIT SUBCUT ×3 (05:43→21:15)
[2021-10-24] MEDS: Ampicillin Sodium/Sulbactam Na 3 GM in 0.9 % Sodium Chloride 100 ML IV ×4 (05:43→23:05)
[2021-10-24 05:44] LABS: Hematocrit 37.9 % (42.0-52.0); Imm Gran Abs Auto 0.04 X10*3/uL (0.00-0.03); Imm Gran Pct Auto 0.7 % (0.0-0.4); Lymphocytes Absolute Auto 0.2 X10*3/uL (1.2-4.9); Lymphocytes Percent Auto 4.1 % (20-40); Mean Corpuscular HGB Conc 31.7 g/dl (31.0-36.0); Mean Corpuscular Volume 91.5 fL (80.0-98.0); Mean Platelet Volume 9.9 fL (9.4-12.4); Monocytes Absolute Auto 0.4 X10*3/uL (0.1-1.2); Monocytes Percent Auto 7.9 % (2-11); Neutrophils Absolute Auto 4.9 x10*3/uL (2.0-8.3); Neutrophils Percent Auto 87.3 % (45-73); Platelet Count 203 X10*3/uL (160-400); Red Blood Count 4.14 X10*6/uL (4.60-5.80); Red Cell Distribution Width 14.1 % (11.0-16.0); White Blood Count 5.6 X10*3/uL (4.8-10.8)
[2021-10-24 06:11] LABS: Albumin Level 3.1 g/dL (3.5-5.0); Anion Gap 10 (12-20); Blood Urea Nitrogen 32 mg/dL (9-16); Calcium 9.2 mg/dL (8.4-10.2); Carbon Dioxide 35 mmol/L (22-29); Chloride 110 mmol/L (96-108); Creatinine Clr Calc Pharmacy 83.9; Estimated Glomerular Filt Rate > 60; Glucose Random 149 mg/dL (60-115); Magnesium 2.6 mg/dL (1.6-2.6); Phosphorus 2.2 mg/dL (2.7-4.5); Potassium 4.5 mmol/L (3.3-5.1); Sodium 150 mmol/L (135-145)
[2021-10-24] MEDS: dexAMETHasone sod phosphate 4 MG/ML VIAL 6 MG IVPUSH (07:19)
[2021-10-24] MEDS: Sodium,Potassium Phosphates POWD.PACK 2 PACKET PO (07:20)
[2021-10-24] MEDS: 0.9 % Sodium Chloride Flush 3 ML SYRINGE IVFLUSH ×3 (07:20→23:03)
[2021-10-24] MEDS: Chlorhexidine Gluc Oral Rinse 15 ML MOUTHWASH BUCCAL ×3 (07:20→21:15)
[2021-10-24] MEDS: fentaNYL citrate/NS 1,000 MCG/100 ML PLAST..BAG 10 MCG IVCONT ×2 (11:01→21:15)
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
--- NOTE | 2021-10-24 13:07 | P.PNCC_ITS ---
Subjective Subjective Date of Service: 10/24/21 Interval History: 61-year-old gentleman with underlying history of on muscular dystrophy with multiple prior admissions intubations for aspiration pneumonia admitted on 10/16/2021 with dyspnea and hypoxemia secondary to a combination of COVID-19 and pulmonary aspiration further complicated by rhabdomyolysis requiring intubation and transferred to intensive care unit on 10/17/2021, extubated on 10/19/2021. Treated with antibiotics and dexamethasone with another aspiration episodes requiring intubation on 10/22/2021. No events overnight. Critical Care Time (minutes): 45 Physical Exam Vital Signs: Vital Signs: Last Vital Signs Temp 99.5 F 10/24/21 12:00 Pulse 66 10/24/21 12:00 Resp 16 10/24/21 12:00 BP 115/64 10/24/21 12:00 Pulse Ox 96 10/24/21 12:00 BMI result Body Mass Index 16.1 Const: General: no acute distress and other (Sedated on the vent) Nutritional Appearance: cachectic Eyes: Sclerae: sclerae normal EOM: EOMs intact bilaterally Neck: Neck: Yes no lymphadenopathy, Yes trachea midline and Yes supple Resp: Effort & Inspection: normal respiratory effort and no respiratory distress Auscultation: clear to auscultation bilaterally Cardio: Rate: regular rate Rhythm: regular rhythm Heart sounds: no gallops, no murmurs and no rubs GI: Palpation (GI): Soft to palpation and Other GI palpation findings present ( Nontender) Auscultation: normal bowel sounds Extrem: General: Yes no pedal edema, No clubbing and No cyanosis Objective Data Labs CBC & Chem 7: 10/24/21 05:15 10/24/21 05:15 Labs: Laboratory Results - last 24 hr 10/24/21 10/24/21 10/24/21 05:15 05:15 05:32 WBC 5.6 RBC 4.14 L Hgb 12.0 L Hct 37.9 L MCV 91.5 MCH 29.0 MCHC 31.7 RDW 14.1 Plt Count 203 D MPV 9.9 Immature Gran % (Auto) 0.7 H Neut % (Auto) 87.3 H Lymph % (Auto) 4.1 L [place] % (Auto) 7.9 Eos % (Auto) 0.0 Baso % (Auto) 0.0 Lymph # (Auto) 0.2 L [place] # (Auto) 0.4 Eos # (Auto) 0.0 Baso # (Auto) 0.0 Abs Immat Gran (auto) 0.04 H Absolute Neuts (auto) 4.9 Absolute Nucleated RBC 0.000 Nucleated RBC % (auto) 0.0 VBG pH 7.46 H VBG pCO2 53 VBG pO2 54 VBG HCO3 38 H VBG O2 Saturation 84.0 VBG Base Excess 12.8 Sodium 150 H Potassium 4.5 D Chloride 110 H Carbon Dioxide 35 H Anion Gap 10 L BUN 32 H Creatinine 0.60 Estim Creat Clear Calc 83.9 Estimated GFR > 60 Random Glucose 149 H Calcium 9.2 D Phosphorus 2.2 L Magnesium 2.6 Albumin 3.1 L Progress Note: A&P Assessment and plan (1) Recurrent aspiration pneumonia: Status: Acute (2) Myotonic muscular dystrophy: Status: Acute (3) Acute hypoxemic respiratory failure: Status: Acute (4) COVID-19: Status: Acute (5) Rhabdomyolysis: Status: Acute Assessment and Plan: Assessment: 61-year-old gentleman with underlying myotonic muscular dystrophy with multiple prior admissions aspiration pneumonia admitted with hypoxemia secondary to COVID-19 and recurrent aspiration pneumonia now requiring re- intubation Plan: Neuro: No acute issues. Cardiac: No acute issues. Pulmonary: Acute on chronic hypoxic respiratory failure secondary to COVID-19 and recurrent aspirations further complicated by underlying myotonic muscular dystrophy. Will discuss tracheostomy versus palliative care with healthcare proxy. Renal: No acute issues. Endo: No acute issues. GI: No acute issues. ID: Empirically covered for aspiration pneumonia versus pneumonitis. COVID-19, now on dexamethasone. Heme/Onc: No acute issues. Psych: No acute issues. Miscellaneous: Discussed with patient's friend (Halle) who lives with the patient and takes care of his disabled to nephew that patient has a cousin (Torito) andan aunt (Fely) whom Halle will try to reach to proceed with goals of care discussion. Prophylaxis: Heparin, omeprazole Diet: Tube feeds Critical care time spent: 45 minutes Quality Stroke Does the patient have a stroke diagnosis?: No VTE Prior VTE?: No VTE Risk Level:: Medical - moderate - high VTE Device Contraindication: N/A - Device Ordered VTE Drug Contraindication: N/A - Med Ordered
[2021-10-25] VITALS (21 sets, daily range): BP systolic 97–183; BP diastolic 52–92; PULSE 66–129; RESP 11–25; TEMP 35–38.2; O2SAT 66–97
[2021-10-25] MEDS: propofoL 1,000 MG/100 ML VIAL 6.8 MG IVCONT (03:42)
[2021-10-25 05:33] LABS: VBG Base Excess 10.4 mmol/L; VBG HCO3 36 mmol/L (22-26); VBG pCO2 53 mmHg; VBG pH 7.44 (7.32-7.43); VBG pO2 47 mmHg
[2021-10-25 05:40] LABS: MANUAL DIFF FLAG NO
[2021-10-25 05:51] LABS: Eosinophils Percent Auto 0.2 % (0-4); Hematocrit 34.5 % (42.0-52.0); Hemoglobin 11.1 g/dl (14.0-18.0); Imm Gran Abs Auto 0.04 X10*3/uL (0.00-0.03); Imm Gran Pct Auto 0.9 % (0.0-0.4); Lymphocytes Absolute Auto 0.3 X10*3/uL (1.2-4.9); Lymphocytes Percent Auto 6.2 % (20-40); Mean Corpuscular HGB Conc 32.2 g/dl (31.0-36.0); Mean Corpuscular Hemoglobin 29.8 pg (27.0-33.0); Mean Corpuscular Volume 92.5 fL (80.0-98.0); Mean Platelet Volume 9.7 fL (9.4-12.4); Monocytes Absolute Auto 0.2 X10*3/uL (0.1-1.2); Monocytes Percent Auto 5.2 % (2-11); Neutrophils Absolute Auto 4.1 x10*3/uL (2.0-8.3); Neutrophils Percent Auto 87.5 % (45-73); Platelet Count 133 X10*3/uL (160-400); Red Blood Count 3.73 X10*6/uL (4.60-5.80); Red Cell Distribution Width 14.1 % (11.0-16.0); White Blood Count 4.7 X10*3/uL (4.8-10.8)
[2021-10-25 06:15] LABS: Albumin Level 2.6 g/dL (3.5-5.0); Anion Gap 8 (12-20); Blood Urea Nitrogen 20 mg/dL (9-16); Calcium 8.1 mg/dL (8.4-10.2); Carbon Dioxide 34 mmol/L (22-29); Chloride 108 mmol/L (96-108); Creatinine Clr Calc Pharmacy 100.7; Estimated Glomerular Filt Rate > 60; Glucose Random 122 mg/dL (60-115); Magnesium 2.2 mg/dL (1.6-2.6); Potassium 4.6 mmol/L (3.3-5.1); Sodium 145 mmol/L (135-145)
[2021-10-25] MEDS: Heparin Sodium,Porcine 5,000 UNIT/ML VIAL 5000 UNIT SUBCUT (06:37)
[2021-10-25] MEDS: fentaNYL citrate/NS 1,000 MCG/100 ML PLAST..BAG 10 MCG IVCONT (06:37)
[2021-10-25 06:38] LABS: Venous Blood Gas Refer to POC result
[2021-10-25] MEDS: Ampicillin Sodium/Sulbactam Na 3 GM in 0.9 % Sodium Chloride 100 ML IV ×2 (06:38→11:52)
[2021-10-25] MEDS: Chlorhexidine Gluc Oral Rinse 15 ML MOUTHWASH BUCCAL (07:19)
[2021-10-25] MEDS: dexAMETHasone sod phosphate 4 MG/ML VIAL 6 MG IVPUSH (07:19)
[2021-10-25] MEDS: 0.9 % Sodium Chloride Flush 3 ML SYRINGE IVFLUSH ×2 (07:19→16:38)
[2021-10-25] MEDS: Albumin Human 25 % 100 ML IV (08:11)
--- NOTE | 2021-10-25 10:14 | MHC.CLN ---
F/U PT RECEIVING PROMOTE AT MAX GOAL RATE 50ML/HR WITH 300CC FREE WATER FLUSHES Q 6HRS TO PROVIDE 1200KCALS (1380KCALS WITH SEDATION; 30.6KCALS/KG BASED ON ABW), 75G PROTEIN (1.6G/KG), 2207ML TOTAL WATER FROM FORMULA AND FLUSHES (49ML/KG BASED ON ABW) SERUM NA WNL; RECOMMEND REDUCING FREE WATER FLUSHES 240ML Q SHIFT MONITOR TOLERANCE, RESIDUALS AND LYTES DISCUSSED AT ROUNDS; POSSIBLE MOTOR ASSEMBLER PENDING PER MD FOLLOWING WITH TEAM
--- NOTE | 2021-10-25 10:28 | PM.CCN ---
Critical Care Event Note Summary Date of Service: 10/25/21 Code activated: No Narrative: Overall poor prognosis and essentially no reasonable chance of recovery of swallowing reflex discussed with patient's cousin Pratik Douglas (only available relative) with stated that patient would not have wanted to have his life prolonged by dependency on ventilator. Decision has been reached to extubated the patient, switch code status to DNR/DNI, and to proceed with comfort measures, if patient decompensates after extubation. Critical Care Time (minutes): 0
--- NOTE | 2021-10-25 11:17 | MHC.CM.PN ---
Patient remains in ICU. 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 [facility] consulted to see if GIP appropriate. Not GIP appropriate at this time. But they will continue to follow. Continue to monitor for d/c needs.
--- NOTE | 2021-10-25 14:04 | PM.CCN ---
Critical Care Event Note Summary Date of Service: 10/25/21 Code activated: No Narrative: Patient extubated and initially maintain his saturation, but now starting to have more aspiration events. Clinical developments discussed with his cousin Mr. Douglas and decision made to switch goals of care to palliation. Code status changed to comfort measures only. Critical Care Time (minutes): 0
--- NOTE | 2021-10-25 16:38 | MHC.CM.PN ---
ANA RECEIVED A CALL FROM JACLYN HOPPER AT [facility]. SHE INDICATED SHE WAS FOLLOWING UP ON REPORTS OF SELF NEGLECT SHE ASKS THAT SHE BE CONTACTED BY PTS PRIMARY CM ON THURSDAY AT [phone]
[2021-10-25] MEDS: LORazepam 2 MG/ML VIAL IVPUSH (16:41)
--- NOTE | 2021-10-25 17:02 | PM.CCN ---
Critical Care Event Note Summary Date of Service: 10/25/21 Code activated: No Narrative: Notified by the nurse that patient in comfort measures status has passed. On my exam no pulse, no respirations, no corneal reflexes, no gag. Official time of 5:00 p.m. Family notified. Critical Care Time (minutes): 0
--- NOTE | 2021-10-25 17:22 | PC.NURSE ---
1600 - patient's SBP 200s with increased work of breathing noted. 2mg Ativan IV given and oral suctioning performed. 1700 patient apneic, no heart sounds. Dr. Rincon informed.
--- NOTE | 2021-10-25 17:27 | PC.NURSE ---
[facility]AN[facility] contacted, donation declined per FRANNY Starkey rep.
--- NOTE | 2021-10-25 17:44 | P.DN_ITS ---
Discharge Sum: Prov Provider Primary care physician: None Physician Discharge Sum: Diag Contributing Factors (1) Recurrent aspiration pneumonia: (2) Myotonic muscular dystrophy: (3) Acute hypoxemic respiratory failure: (4) COVID-19: (5) Rhabdomyolysis: Discharge Sum: Summary Date and Time Date of admission: 10/16/21 10:49 Date of : 10/25/21 Time of : 17:00 Summary Details: 61-year-old gentleman with underlying history of on muscular dystrophy with multiple prior admissions intubations for aspiration pneumonia admitted on 10/16/2021 with dyspnea and hypoxemia secondary to a combination of COVID-19 and pulmonary aspiration further complicated by rhabdomyolysis requiring intubation and transferred to intensive care unit on 10/17/2021, extubated on 10/19/2021. Treated with antibiotics and dexamethasone with another aspiration episodes requiring intubation on 10/22/2021. On 10/25/2021 overall poor prognosis and essentially no reasonable chance of recovery of swallowing reflex discussed with patient's cousin Praitk Douglas (only available relative) who stated that patient would not have wanted to have his life prolonged by dependency on ventilator. Decision has been reached to extubated the patient, switch code status to DNR/DNI, and to proceed with comfort measures, if patient decompensates after extubation. Patient extubated and initially maintained his O2 saturation. cosmetician apprentice administered last rights. Over several hours patient continued to have more aspiration events. Clinical developments discussed with his cousin Mr. Douglas and decision made to switch goals of care to palliation. Code status changed to comfort measures only with patient started on fentanyl drip and passing peacefully at 5:00 p.m. on 10/25/2021. Additional Data Confirmation of as documented by pronouncing clinician: no pulse, no respirations, no heart sounds and pupils fixed and dilated Family: contacted Attending physician: Clyde Rincon MD
--- NOTE | 2021-10-25 18:00 | PC.NURSE ---
Torito Douglas, patient's cousin, called back with Home Information. [facility] [address] [place] [address]
== END 2021-10-25 17:00 | disposition expired | DRG 207 ==
LOC: HO.ED 08:43 → HO.EDOVER 12:57 → HO.IMC 14:04 → HO.ICU 10-17 03:27 → HO.IMC 10-19 17:58 → HO.ICU 10-22 17:55
PROVIDERS: Internal Medicine; Internal Medicine Cardiovascular Disease; Physician Assistant; Physician Assistant Medical; Student in an Organized Health Care Education/Training Program; Admitting Provider Family Medicine; Emergency Provider Emergency Medicine; Visit Provider Internal Medicine Pulmonary Disease
DX: U07.1 COVID-19 (principal); J96.01 Acute respiratory failure with hypoxia; J12.82 Pneumonia due to coronavirus disease 2019; G93.41 Metabolic encephalopathy; E43 Unspecified severe protein-calorie malnutrition; J69.0 Pneumonitis due to inhalation of food and vomit; M62.82 Rhabdomyolysis; K62.5 Hemorrhage of anus and rectum; Z68.1 Body mass index [BMI] 19.9 or less, adult; F17.210 Nicotine dependence, cigarettes, uncomplicated; Z91.81 History of falling; Z71.6 Tobacco abuse counseling; G71.11 Myotonic muscular dystrophy; R29.6 Repeated falls; I45.81 Long QT syndrome; Z66 Do not resuscitate
CPT/HCPCS: 36415; 36600; 70450; 71045; 72125; 80048; 80053; 80307; 81001; 82040; 82077; 82272; 82550; 82728; 82803; 82947; 83615; 83735; 84100; 84145; 84484; 85007; 85014; 85018; 85025; 85027; 85379; 85610; 85730; 86140; 86850; 86900; 86901; 87635; 92610; 93005; 93306; 94002; 94003; 94640; 94660; 94799; 96361; 96374; 96375; 97163; 99284; 99285; C1758; J0295; J1100; J1956; J2060; J2270; J3010; P9047